=== PATIENT | male | born 1930 | race Caucasian/White ===

== ENCOUNTER 2018-01-31 16:50 | Inpatient (IN) | payer MEDICARE, BC ==
[~2018-01-31] VITALS: Ht 180.3 cm; Wt 71.0 kg
[2018-01-31] MEDS ORDERED: ondansetron/PF 4mg/2ml inj IM ONE (20:50)
[2018-01-31] MEDS ORDERED: normal saline 1000ML IV soln IVB ONE (20:50)
[2018-01-31] MEDS ORDERED: morphine 4 MG/ML inj SYRINge IV ONE (20:50)
[2018-01-31 21:46] LABS: BASOPHILS % (AUTO) 0 % (0-1); EOSINOPHILS % (AUTO) 0.1 % (0-6); HEMATOCRIT 27.1 % (42.0-52.0); HEMOGLOBIN 8.8 g/dl (14.0-17.9); LYMPHOCYTES # (AUTO) 0.5 X10'3 (1.1-4.8); LYMPHOCYTES % (AUTO) 4.2 % (21-51); MEAN CORPUSCULAR HEMOGLOBIN 26.1 PG (27.0-31.0); MEAN CORPUSCULAR HGB CONC 32.3 % (33.0-36.5); MEAN CORPUSCULAR VOLUME 80.7 FL (78-98); MEAN PLATELET VOLUME 8.5 FL (7.4-10.4); MONOCYTES # (AUTO) 0.8 X10'3 (0-0.9); MONOCYTES % (AUTO) 6.8 % (2-12); NEUTROPHILS # (AUTO) 10.3 X10'3 (1.8-7.7); NEUTROPHILS % (AUTO) 88.9 % (42-75); PLATELET COUNT 349 X10'3 (140-440); RED BLOOD COUNT 3.36 X10'6 (4.70-6.10); RED CELL DISTRIBUTION WIDTH 18.4 % (11.5-14.5); WHITE BLOOD COUNT 11.6 X10'3 (4.5-11.0)
[2018-01-31 21:57] LABS: CLARITY,URINE SLIGHTLY CLOUDY (Clear); COLOR,URINE YELLOW (Yellow); GLUCOSE, URINE NEGATIVE (Neg); KETONES,URINE NEGATIVE (Neg); LEUKOCYTE ESTERASE ,URINE NEGATIVE (Neg); NITRITES, URINE NEGATIVE (Neg); OCCULT BLOOD,URINE SMALL (Neg); PROTEIN,URINE 100 mg/dl (Neg)
[2018-01-31 22:05] LABS: UA COLLECTION TYPE CLN CATCH MIDSTREAM
[2018-01-31 22:06] LABS: PARTIAL THROMBOPLASTIN TIME 30 SECONDS (22-32); PROTHROMBIN TIME 10.5 SECONDS (9.0-12.0)
[2018-01-31 22:07] LABS: BACTERIA,URINE 4+ /HPF (Neg); SQUAMOUS EPITHELIAL CELL,UR NONE SEEN /LPF (FEW); WBC,URINE 0-4 /HPF (0-4)
[2018-01-31 22:09] LABS: ALANINE AMINOTRANSFERASE 17 U/L (12-78); ALBUMIN 2.9 G/DL (3.4-5.0); ALBUMIN/GLOBULIN RATIO 0.7 (1.1-1.5); ALKALINE PHOSPHATASE 59 IU/L (46-116); ANION GAP 11 (8-16); ASPARTATE AMINO TRANSFERASE 13 U/L (10-37); BILIRUBIN,TOTAL 0.6 MG/DL (0.1-1.0); BLOOD UREA NITROGEN 34 MG/DL (7-18); BUN/CREATININE RATIO 21.8 (5.4-32.0); CHLORIDE 102 MMOL/L (99-107); CREATININE 1.56 MG/DL (0.60-1.10); GLUCOSE 163 MG/DL (70-104); LIPASE 790 U/L (73-393); POTASSIUM 4.1 MMOL/L (3.5-5.1); SODIUM 136 MMOL/L (135-145); TOTAL CARBON DIOXIDE 23.4 MMOL/L (24-32); TOTAL PROTEIN 7.1 G/DL (6.4-8.2); eGFR 42 ML/MIN
[2018-02-01] MEDS ORDERED: CefTRIAXone/D5W-Rocephin 1gm 50 ML IV ONE (01:15)
[2018-02-01] MEDS ORDERED: ondansetron/PF 4mg/2ml inj IV PRN (02:05)
[2018-02-01] MEDS ORDERED: ACET325T63 (02:31)
[2018-02-01] MEDS ORDERED: ACET-1017 (02:31)
[2018-02-01] MEDS ORDERED: AMLO2.5T2 PO (02:33)
[2018-02-01] MEDS ORDERED: CALC300T4 PO (02:40)
[2018-02-01] MEDS ORDERED: ATRO10DR BU (02:40)
[2018-02-01] MEDS ORDERED: CARB1TAB23 PO (02:40)
[2018-02-01] MEDS ORDERED: AZAT50TA35 PO (02:40)
[2018-02-01] MEDS ORDERED: FERR325T28 PO (02:40)
[2018-02-01] MEDS ORDERED: ATOR40TA PO (02:40)
[2018-02-01] MEDS ORDERED: ASPI-1265 PO (02:40)
[2018-02-01] MEDS ORDERED: FLO0.4C PO (02:45)
[2018-02-01] MEDS ORDERED: GLIM1TAB46 PO (02:45)
[2018-02-01] MEDS ORDERED: LISI40TA4 PO (02:45)
[2018-02-01] MEDS ORDERED: PYRI60TA2 PO (02:45)
[2018-02-01] MEDS ORDERED: PRED5TAB PO (02:45)
[2018-02-01] MEDS ORDERED: ASCO500C15 PO (02:47)
[2018-02-01] MEDS: normal saline 1000ml 1,000 ML IV SCH ×3 (03:40→23:47)
[2018-02-01 07:00] VITALS: BP 138/71
[2018-02-01] MEDS: glimepiride 1 MG tablet PO SCH ×2 (07:30→17:24)
[2018-02-01] MEDS ORDERED: ATROPINE SULFATE BU SCH (08:00)
[2018-02-01] MEDS ORDERED: NACL 0.9% BU SCH (08:00)
[2018-02-01] MEDS ORDERED: CefTRIAXone/D5W-Rocephin 1gm 50 ML IV SCH (08:00)
[2018-02-01] MEDS: atorvastatin 20mg tablet PO SCH (08:50)
[2018-02-01] MEDS: lisinopril 20mg tablet PO SCH (08:50)
[2018-02-01] MEDS: calcium carbonate 500mg chew tablet PO SCH ×3 (08:51→20:21)
[2018-02-01] MEDS: ascorbic acid 500mg tablet PO SCH (08:51)
[2018-02-01] MEDS: amLODIPine 5mg tablet PO SCH (08:51)
[2018-02-01] MEDS: tamsulosin 0.4mg capsule PO SCH (08:52)
[2018-02-01] MEDS: predniSONE 20 mg tablet PO SCH (08:52)
[2018-02-01] MEDS: ferrous sulfate 325mg tablet PO SCH (08:52)
[2018-02-01] MEDS: pyridostigmine br 60mg tablet PO SCH ×3 (08:56→20:21)
[2018-02-01] MEDS: carbidoba-levodopa 25-100mg tablet PO SCH ×3 (08:58→20:21)
[2018-02-01 09:32] LABS: BASOPHILS % (AUTO) 0.1 % (0-1); LYMPHOCYTES # (AUTO) 0.7 X10'3 (1.1-4.8); WHITE BLOOD COUNT 8.6 X10'3 (4.5-11.0)
[2018-02-01 09:49] LABS: EOSINOPHILS # (AUTO) 0.2 X10'3 (0-0.9); EOSINOPHILS % (AUTO) 1.9 % (0-6); HEMATOCRIT 24.1 % (42.0-52.0); HEMOGLOBIN 7.8 g/dl (14.0-17.9); LYMPHOCYTES % (AUTO) 7.6 % (21-51); MEAN CORPUSCULAR HGB CONC 32.2 % (33.0-36.5); MEAN CORPUSCULAR VOLUME 80.9 FL (78-98); MEAN PLATELET VOLUME 8.8 FL (7.4-10.4); MONOCYTES # (AUTO) 0.7 X10'3 (0-0.9); MONOCYTES % (AUTO) 7.7 % (2-12); NEUTROPHILS # (AUTO) 7.1 X10'3 (1.8-7.7); NEUTROPHILS % (AUTO) 82.7 % (42-75); PLATELET COUNT 308 X10'3 (140-440); RED BLOOD COUNT 2.98 X10'6 (4.70-6.10); RED CELL DISTRIBUTION WIDTH 18.2 % (11.5-14.5)
[2018-02-01] MEDS: piperacillin/tazo 4.5gm/100ml 100 ML IV SCH ×3 (10:25→23:48)
[2018-02-01 12:00] VITALS: BP 145/63
[2018-02-01 18:22] VITALS: BP 111/40
[2018-02-01] MEDS: lactobacillus rhamnosus 10,000 MMU CELLS/CAPSULE PO SCH (20:21)
[2018-02-01 22:10] VITALS: BP 104/40
[2018-02-01 22:43] VITALS: BP 108/50
[2018-02-02] MEDS: calcium carbonate 500mg chew tablet PO SCH ×4 (02:00→20:50)
[2018-02-02 05:50] LABS: BASOPHILS % (AUTO) 0 % (0-1); EOSINOPHILS # (AUTO) 0.2 X10'3 (0-0.9); EOSINOPHILS % (AUTO) 1.6 % (0-6); LYMPHOCYTES # (AUTO) 0.7 X10'3 (1.1-4.8); LYMPHOCYTES % (AUTO) 7.2 % (21-51); MEAN CORPUSCULAR HGB CONC 32.8 % (33.0-36.5); MEAN CORPUSCULAR VOLUME 79.4 FL (78-98); MEAN PLATELET VOLUME 8.2 FL (7.4-10.4); MONOCYTES # (AUTO) 0.5 X10'3 (0-0.9); MONOCYTES % (AUTO) 5.5 % (2-12); NEUTROPHILS # (AUTO) 8.5 X10'3 (1.8-7.7); NEUTROPHILS % (AUTO) 85.7 % (42-75); PLATELET COUNT 288 X10'3 (140-440); RED BLOOD COUNT 2.59 X10'6 (4.70-6.10); RED CELL DISTRIBUTION WIDTH 18.4 % (11.5-14.5); WHITE BLOOD COUNT 9.9 X10'3 (4.5-11.0)
[2018-02-02 06:10] LABS: HEMATOCRIT 20.6 % (42.0-52.0); HEMOGLOBIN 6.8 g/dl (14.0-17.9)
[2018-02-02 06:34] LABS: ALBUMIN/GLOBULIN RATIO 0.6 (1.1-1.5); ALKALINE PHOSPHATASE 42 IU/L (46-116); ANION GAP 8 (8-16); ASPARTATE AMINO TRANSFERASE 13 U/L (10-37); BILIRUBIN,TOTAL 0.3 MG/DL (0.1-1.0); BLOOD UREA NITROGEN 34 MG/DL (7-18); BUN/CREATININE RATIO 20.2 (5.4-32.0); CALCIUM 8.1 MG/DL (8.5-10.1); CHLORIDE 108 MMOL/L (99-107); CREATININE 1.68 MG/DL (0.60-1.10); GLUCOSE 68 MG/DL (70-104); POTASSIUM 3.6 MMOL/L (3.5-5.1); SODIUM 140 MMOL/L (135-145); TOTAL CARBON DIOXIDE 23.7 MMOL/L (24-32); TOTAL PROTEIN 5.4 G/DL (6.4-8.2); eGFR 39 ML/MIN
[2018-02-02 06:38] LABS: ALANINE AMINOTRANSFERASE < 6 U/L (12-78)
[2018-02-02 06:44] VITALS: BP 119/62
[2018-02-02] MEDS: piperacillin/tazo 4.5gm/100ml 100 ML IV SCH (07:27)
[2018-02-02] MEDS: glimepiride 1 MG tablet PO SCH ×2 (07:27→20:50)
[2018-02-02] MEDS: pyridostigmine br 60mg tablet PO SCH ×3 (07:27→20:50)
[2018-02-02] MEDS: atorvastatin 20mg tablet PO SCH (07:27)
[2018-02-02] MEDS: ferrous sulfate 325mg tablet PO SCH (07:28)
[2018-02-02] MEDS: ascorbic acid 500mg tablet PO SCH (07:28)
[2018-02-02] MEDS: carbidoba-levodopa 25-100mg tablet PO SCH ×3 (07:29→20:50)
[2018-02-02] MEDS: tamsulosin 0.4mg capsule PO SCH (07:29)
[2018-02-02] MEDS: lactobacillus rhamnosus 10,000 MMU CELLS/CAPSULE PO SCH ×2 (07:29→20:50)
[2018-02-02] MEDS: predniSONE 20 mg tablet PO SCH (07:30)
[2018-02-02] MEDS: amLODIPine 5mg tablet PO SCH (07:30)
[2018-02-02] MEDS: lisinopril 20mg tablet PO SCH (07:30)
[2018-02-02 10:00] VITALS: BP 134/53
[2018-02-02] MEDS ORDERED: dextrose 50%-water 50ml dispensing syringe IV PRN ×2 (10:05)
[2018-02-02] MEDS ORDERED: diphenhydrAMINE 25mg capsule PO ONE (10:05)
[2018-02-02] MEDS ORDERED: MESSAGE TO PHARMACY PO ONE (10:05)
[2018-02-02] MEDS ORDERED: insulin Lispro (HumaLOG) vial - multi-dose SQ SCH (10:05)
[2018-02-02] MEDS ORDERED: glucagon, human recombinant 1mg kit SUBCUT PRN (10:05)
[2018-02-02] MEDS ORDERED: acetaminophen 325mg tablet PO ONE (10:05)
[2018-02-02] MEDS ORDERED: dextrose ORAL solution 15 GM/59 ML bottle PO PRN ×2 (10:05)
[2018-02-02 10:47] LABS: BASOPHILS % (AUTO) 0 % (0-1); EOSINOPHILS # (AUTO) 0.2 X10'3 (0-0.9); EOSINOPHILS % (AUTO) 1.3 % (0-6); HEMATOCRIT 23.2 % (42.0-52.0); HEMOGLOBIN 7.5 g/dl (14.0-17.9); LYMPHOCYTES # (AUTO) 0.2 X10'3 (1.1-4.8); LYMPHOCYTES % (AUTO) 1.2 % (21-51); MEAN CORPUSCULAR HEMOGLOBIN 25.9 PG (27.0-31.0); MEAN CORPUSCULAR HGB CONC 32.2 % (33.0-36.5); MEAN CORPUSCULAR VOLUME 80.5 FL (78-98); MEAN PLATELET VOLUME 8.2 FL (7.4-10.4); MONOCYTES # (AUTO) 0.4 X10'3 (0-0.9); MONOCYTES % (AUTO) 2.9 % (2-12); NEUTROPHILS # (AUTO) 12.8 X10'3 (1.8-7.7); NEUTROPHILS % (AUTO) 94.6 % (42-75); PLATELET COUNT 348 X10'3 (140-440); RED BLOOD COUNT 2.89 X10'6 (4.70-6.10); RED CELL DISTRIBUTION WIDTH 18.8 % (11.5-14.5); WHITE BLOOD COUNT 13.5 X10'3 (4.5-11.0)
[2018-02-02] MEDS: levoFLOXACIN-Levaquin 500mg/D5 100 ML IV SCH (10:49)
[2018-02-02 11:27] LABS: % IRON SATURATION 7 % (11-46); IRON 14 UG/DL (53-167); TOTAL IRON BINDING CAPACITY 187 UG/DL (259-388)
[2018-02-02] MEDS: Potassium Cl inj 10 MEQ in normal saline 1000ml 1,000 ML IV SCH (14:19)
[2018-02-02 18:20] VITALS: BP 116/50
[2018-02-02 22:15] VITALS: BP 118/49
[2018-02-03] VITALS (12 sets, daily range): BP systolic 105–156; BP diastolic 45–69
[2018-02-03] MEDS: Potassium Cl inj 10 MEQ in normal saline 1000ml 1,000 ML IV SCH ×3 (00:05→19:59)
[2018-02-03] MEDS ORDERED: Potassium Cl inj 10 MEQ in normal saline 1000ml 1,000 ML IV SCH (02:02)
[2018-02-03] MEDS: calcium carbonate 500mg chew tablet PO SCH ×4 (02:04→20:22)
[2018-02-03 06:33] LABS: BASOPHILS % (AUTO) 0.1 % (0-1); EOSINOPHILS # (AUTO) 0.3 X10'3 (0-0.9); EOSINOPHILS % (AUTO) 3.4 % (0-6); LYMPHOCYTES # (AUTO) 0.8 X10'3 (1.1-4.8); MEAN CORPUSCULAR HEMOGLOBIN 26.3 PG (27.0-31.0); MEAN CORPUSCULAR VOLUME 79.6 FL (78-98); MEAN PLATELET VOLUME 8.5 FL (7.4-10.4); MONOCYTES # (AUTO) 0.5 X10'3 (0-0.9); MONOCYTES % (AUTO) 5.6 % (2-12); NEUTROPHILS # (AUTO) 7.4 X10'3 (1.8-7.7); NEUTROPHILS % (AUTO) 81.9 % (42-75); PLATELET COUNT 281 X10'3 (140-440); RED BLOOD COUNT 2.41 X10'6 (4.70-6.10); RED CELL DISTRIBUTION WIDTH 18.3 % (11.5-14.5)
[2018-02-03 06:38] LABS: ALBUMIN 1.9 G/DL (3.4-5.0); ALBUMIN/GLOBULIN RATIO 0.6 (1.1-1.5); ALKALINE PHOSPHATASE 39 IU/L (46-116); ANION GAP 6 (8-16); ASPARTATE AMINO TRANSFERASE 13 U/L (10-37); BILIRUBIN,TOTAL 0.3 MG/DL (0.1-1.0); BLOOD UREA NITROGEN 28 MG/DL (7-18); BUN/CREATININE RATIO 17.8 (5.4-32.0); CHLORIDE 110 MMOL/L (99-107); CREATININE 1.57 MG/DL (0.60-1.10); GLUCOSE 58 MG/DL (70-104); HEMATOCRIT 19.2 % (42.0-52.0); HEMOGLOBIN 6.4 g/dl (14.0-17.9); POTASSIUM 3.6 MMOL/L (3.5-5.1); SODIUM 140 MMOL/L (135-145); TOTAL CARBON DIOXIDE 23.7 MMOL/L (24-32); TOTAL PROTEIN 5.1 G/DL (6.4-8.2); eGFR 42 ML/MIN
[2018-02-03 06:39] LABS: ALANINE AMINOTRANSFERASE < 6 U/L (12-78)
[2018-02-03] MEDS: carbidoba-levodopa 25-100mg tablet PO SCH ×3 (08:00→20:22)
[2018-02-03] MEDS: levoFLOXACIN-Levaquin 500mg/D5 100 ML IV SCH (09:11)
[2018-02-03] MEDS: ferrous sulfate 325mg tablet PO SCH (09:12)
[2018-02-03] MEDS: tamsulosin 0.4mg capsule PO SCH (09:12)
[2018-02-03] MEDS: lisinopril 20mg tablet PO SCH (09:12)
[2018-02-03] MEDS: glimepiride 1 MG tablet PO SCH ×2 (09:12→17:28)
[2018-02-03] MEDS: ascorbic acid 500mg tablet PO SCH (09:12)
[2018-02-03] MEDS: predniSONE 20 mg tablet PO SCH (09:12)
[2018-02-03] MEDS: lactobacillus rhamnosus 10,000 MMU CELLS/CAPSULE PO SCH ×2 (09:13→20:22)
[2018-02-03] MEDS: amLODIPine 5mg tablet PO SCH (09:13)
[2018-02-03] MEDS: pyridostigmine br 60mg tablet PO SCH ×3 (09:13→20:22)
[2018-02-03] MEDS: atorvastatin 20mg tablet PO SCH (09:13)
[2018-02-03 11:49] LABS: HEMATOCRIT 22.5 % (42.0-52.0); HEMOGLOBIN 7.3 g/dl (14.0-17.9); MEAN CORPUSCULAR HEMOGLOBIN 26.1 PG (27.0-31.0); MEAN CORPUSCULAR HGB CONC 32.5 % (33.0-36.5); MEAN CORPUSCULAR VOLUME 80.5 FL (78-98); MEAN PLATELET VOLUME 8.1 FL (7.4-10.4); PLATELET COUNT 298 X10'3 (140-440); RED BLOOD COUNT 2.79 X10'6 (4.70-6.10); WHITE BLOOD COUNT 10.1 X10'3 (4.5-11.0)
[2018-02-03 15:33] LABS: OCCULT BLOOD STOOL NEGATIVE (Neg)
[2018-02-03] MEDS ORDERED: glimepiride 1 MG tablet PO SCH ×2 (17:30→20:00)
[2018-02-03] MEDS: cefpodoxime proxetil 100mg tablet PO SCH (17:33)
[2018-02-03 18:01] LABS: HEMATOCRIT 28.2 % (42.0-52.0); HEMOGLOBIN 9.2 g/dl (14.0-17.9); MEAN CORPUSCULAR HEMOGLOBIN 26.5 PG (27.0-31.0); MEAN CORPUSCULAR HGB CONC 32.6 % (33.0-36.5); MEAN CORPUSCULAR VOLUME 81.2 FL (78-98); PLATELET COUNT 334 X10'3 (140-440); RED BLOOD COUNT 3.48 X10'6 (4.70-6.10); RED CELL DISTRIBUTION WIDTH 17.5 % (11.5-14.5); WHITE BLOOD COUNT 12.2 X10'3 (4.5-11.0)
[2018-02-04] MEDS: calcium carbonate 500mg chew tablet PO SCH ×4 (02:51→20:00)
[2018-02-04] MEDS: Potassium Cl inj 10 MEQ in normal saline 1000ml 1,000 ML IV SCH ×2 (02:53→14:38)
[2018-02-04 06:00] VITALS: BP 130/65
[2018-02-04 06:12] LABS: BASOPHILS % (AUTO) 0 % (0-1); EOSINOPHILS # (AUTO) 0.1 X10'3 (0-0.9); EOSINOPHILS % (AUTO) 0.9 % (0-6); HEMATOCRIT 25.7 % (42.0-52.0); HEMOGLOBIN 8.4 g/dl (14.0-17.9); LYMPHOCYTES # (AUTO) 0.7 X10'3 (1.1-4.8); LYMPHOCYTES % (AUTO) 8.3 % (21-51); MEAN CORPUSCULAR HEMOGLOBIN 26.6 PG (27.0-31.0); MEAN CORPUSCULAR HGB CONC 32.8 % (33.0-36.5); MEAN CORPUSCULAR VOLUME 81.2 FL (78-98); MEAN PLATELET VOLUME 8.5 FL (7.4-10.4); MONOCYTES # (AUTO) 0.4 X10'3 (0-0.9); MONOCYTES % (AUTO) 4.4 % (2-12); NEUTROPHILS # (AUTO) 7.7 X10'3 (1.8-7.7); NEUTROPHILS % (AUTO) 86.4 % (42-75); PLATELET COUNT 305 X10'3 (140-440); RED BLOOD COUNT 3.17 X10'6 (4.70-6.10); RED CELL DISTRIBUTION WIDTH 16.9 % (11.5-14.5); WHITE BLOOD COUNT 8.9 X10'3 (4.5-11.0)
[2018-02-04 07:07] LABS: ALBUMIN 1.9 G/DL (3.4-5.0); ALBUMIN/GLOBULIN RATIO 0.6 (1.1-1.5); ALKALINE PHOSPHATASE 48 IU/L (46-116); ANION GAP 10 (8-16); ASPARTATE AMINO TRANSFERASE 11 U/L (10-37); BILIRUBIN,TOTAL 0.6 MG/DL (0.1-1.0); BLOOD UREA NITROGEN 23 MG/DL (7-18); BUN/CREATININE RATIO 16.3 (5.4-32.0); CALCIUM 8.3 MG/DL (8.5-10.1); CHLORIDE 109 MMOL/L (99-107); CREATININE 1.41 MG/DL (0.60-1.10); GLUCOSE 111 MG/DL (70-104); POTASSIUM 4.1 MMOL/L (3.5-5.1); SODIUM 142 MMOL/L (135-145); TOTAL CARBON DIOXIDE 22.6 MMOL/L (24-32); TOTAL PROTEIN 5.3 G/DL (6.4-8.2); eGFR 48 ML/MIN
[2018-02-04 07:48] LABS: ALANINE AMINOTRANSFERASE < 6 U/L (12-78)
[2018-02-04] MEDS: glimepiride 1 MG tablet PO SCH (07:52)
[2018-02-04] MEDS: pyridostigmine br 60mg tablet PO SCH ×3 (07:52→21:30)
[2018-02-04] MEDS: carbidoba-levodopa 25-100mg tablet PO SCH ×3 (07:52→21:30)
[2018-02-04] MEDS: lactobacillus rhamnosus 10,000 MMU CELLS/CAPSULE PO SCH ×2 (07:53→20:00)
[2018-02-04] MEDS: amLODIPine 5mg tablet PO SCH (07:53)
[2018-02-04] MEDS: ascorbic acid 500mg tablet PO SCH (07:53)
[2018-02-04] MEDS: predniSONE 20 mg tablet PO SCH (07:53)
[2018-02-04] MEDS: ferrous sulfate 325mg tablet PO SCH (07:53)
[2018-02-04] MEDS: atorvastatin 20mg tablet PO SCH (07:53)
[2018-02-04] MEDS: lisinopril 20mg tablet PO SCH (07:53)
[2018-02-04] MEDS: tamsulosin 0.4mg capsule PO SCH (07:53)
[2018-02-04] MEDS: cefpodoxime proxetil 100mg tablet PO SCH ×2 (07:54→17:33)
[2018-02-04 09:27] LABS: BASOPHILS % (AUTO) 0.4 % (0-1); EOSINOPHILS # (AUTO) 0.3 X10'3 (0-0.9); HEMATOCRIT 29.9 % (42.0-52.0); HEMOGLOBIN 9.6 g/dl (14.0-17.9); LYMPHOCYTES # (AUTO) 0.8 X10'3 (1.1-4.8); LYMPHOCYTES % (AUTO) 8.3 % (21-51); MEAN CORPUSCULAR HEMOGLOBIN 26.1 PG (27.0-31.0); MEAN CORPUSCULAR HGB CONC 32.1 % (33.0-36.5); MEAN CORPUSCULAR VOLUME 81.2 FL (78-98); MEAN PLATELET VOLUME 8.2 FL (7.4-10.4); MONOCYTES # (AUTO) 0.4 X10'3 (0-0.9); MONOCYTES % (AUTO) 4.5 % (2-12); NEUTROPHILS # (AUTO) 7.6 X10'3 (1.8-7.7); NEUTROPHILS % (AUTO) 83.8 % (42-75); PLATELET COUNT 369 X10'3 (140-440); RED BLOOD COUNT 3.69 X10'6 (4.70-6.10); RED CELL DISTRIBUTION WIDTH 17.6 % (11.5-14.5); WHITE BLOOD COUNT 9.1 X10'3 (4.5-11.0)
[2018-02-04 10:35] VITALS: BP 152/59
[2018-02-04 19:00] VITALS: BP 141/71
[2018-02-04] MEDS ORDERED: glucagon, human recombinant 1mg kit SUBCUT PRN (21:45)
[2018-02-04] MEDS ORDERED: insulin Lispro (HumaLOG) vial - multi-dose SQ SCH (21:45)
[2018-02-04] MEDS ORDERED: dextrose 50%-water 50ml dispensing syringe IV PRN ×2 (21:45)
[2018-02-04] MEDS ORDERED: MESSAGE TO PHARMACY PO ONE (21:45)
[2018-02-04] MEDS ORDERED: dextrose ORAL solution 15 GM/59 ML bottle PO PRN ×2 (21:45)
[2018-02-04 22:00] VITALS: BP 132/54
[2018-02-05] MEDS: Potassium Cl inj 10 MEQ in normal saline 1000ml 1,000 ML IV SCH ×3 (01:11→22:14)
[2018-02-05] MEDS: calcium carbonate 500mg chew tablet PO SCH ×4 (03:51→20:12)
[2018-02-05 05:31] LABS: BASOPHILS % (AUTO) 0.4 % (0-1); EOSINOPHILS # (AUTO) 0.2 X10'3 (0-0.9); EOSINOPHILS % (AUTO) 2.6 % (0-6); HEMATOCRIT 26.7 % (42.0-52.0); HEMOGLOBIN 8.8 g/dl (14.0-17.9); LYMPHOCYTES # (AUTO) 0.9 X10'3 (1.1-4.8); LYMPHOCYTES % (AUTO) 11.7 % (21-51); MEAN CORPUSCULAR HEMOGLOBIN 26.6 PG (27.0-31.0); MEAN CORPUSCULAR VOLUME 80.6 FL (78-98); MONOCYTES # (AUTO) 0.5 X10'3 (0-0.9); MONOCYTES % (AUTO) 6.7 % (2-12); NEUTROPHILS # (AUTO) 6.4 X10'3 (1.8-7.7); NEUTROPHILS % (AUTO) 78.6 % (42-75); PLATELET COUNT 341 X10'3 (140-440); RED BLOOD COUNT 3.32 X10'6 (4.70-6.10); RED CELL DISTRIBUTION WIDTH 17.3 % (11.5-14.5); WHITE BLOOD COUNT 8.1 X10'3 (4.5-11.0)
[2018-02-05 05:51] LABS: ALANINE AMINOTRANSFERASE 6 U/L (12-78); ALBUMIN/GLOBULIN RATIO 0.6 (1.1-1.5); ALKALINE PHOSPHATASE 43 IU/L (46-116); ANION GAP 8 (8-16); ASPARTATE AMINO TRANSFERASE 14 U/L (10-37); BILIRUBIN,TOTAL 0.4 MG/DL (0.1-1.0); BLOOD UREA NITROGEN 22 MG/DL (7-18); BUN/CREATININE RATIO 19.1 (5.4-32.0); CALCIUM 8.3 MG/DL (8.5-10.1); CHLORIDE 112 MMOL/L (99-107); CREATININE 1.15 MG/DL (0.60-1.10); GLUCOSE 78 MG/DL (70-104); SODIUM 143 MMOL/L (135-145); TOTAL CARBON DIOXIDE 23.5 MMOL/L (24-32); TOTAL PROTEIN 5.3 G/DL (6.4-8.2); eGFR 60 ML/MIN
[2018-02-05 06:00] VITALS: BP 142/67
[2018-02-05] MEDS: cefpodoxime proxetil 100mg tablet PO SCH ×2 (08:18→17:25)
[2018-02-05] MEDS: lisinopril 20mg tablet PO SCH (08:21)
[2018-02-05] MEDS: amLODIPine 5mg tablet PO SCH (08:21)
[2018-02-05] MEDS: ferrous sulfate 325mg tablet PO SCH (08:22)
[2018-02-05] MEDS: predniSONE 20 mg tablet PO SCH (08:22)
[2018-02-05] MEDS: tamsulosin 0.4mg capsule PO SCH (08:22)
[2018-02-05] MEDS: atorvastatin 20mg tablet PO SCH (08:24)
[2018-02-05] MEDS: pyridostigmine br 60mg tablet PO SCH ×3 (08:24→20:12)
[2018-02-05] MEDS: glimepiride 1 MG tablet PO SCH ×2 (08:24→17:25)
[2018-02-05] MEDS: ascorbic acid 500mg tablet PO SCH (08:25)
[2018-02-05] MEDS: lactobacillus rhamnosus 10,000 MMU CELLS/CAPSULE PO SCH ×2 (08:26→20:12)
[2018-02-05] MEDS: carbidoba-levodopa 25-100mg tablet PO SCH ×3 (08:28→20:12)
[2018-02-05 10:00] VITALS: BP 149/56
[2018-02-05 18:00] VITALS: BP 108/40
[2018-02-05] MEDS ORDERED: insulin glargine (Lantus) pen - multi-dose SQ SCH (21:00)
[2018-02-05 22:00] VITALS: BP 126/58
[2018-02-06] MEDS: calcium carbonate 500mg chew tablet PO SCH ×3 (01:56→13:07)
[2018-02-06 06:00] VITALS: BP 128/53
[2018-02-06 06:30] LABS: BASOPHILS % (AUTO) 0.2 % (0-1); EOSINOPHILS # (AUTO) 0.2 X10'3 (0-0.9); EOSINOPHILS % (AUTO) 2.4 % (0-6); HEMATOCRIT 27.4 % (42.0-52.0); LYMPHOCYTES # (AUTO) 0.8 X10'3 (1.1-4.8); LYMPHOCYTES % (AUTO) 10.8 % (21-51); MEAN CORPUSCULAR HEMOGLOBIN 26.3 PG (27.0-31.0); MEAN CORPUSCULAR HGB CONC 32.8 % (33.0-36.5); MEAN CORPUSCULAR VOLUME 80.4 FL (78-98); MONOCYTES # (AUTO) 0.4 X10'3 (0-0.9); MONOCYTES % (AUTO) 5.1 % (2-12); NEUTROPHILS # (AUTO) 6.2 X10'3 (1.8-7.7); NEUTROPHILS % (AUTO) 81.5 % (42-75); PLATELET COUNT 373 X10'3 (140-440); RED CELL DISTRIBUTION WIDTH 17.8 % (11.5-14.5); WHITE BLOOD COUNT 7.6 X10'3 (4.5-11.0)
[2018-02-06 06:48] LABS: ALANINE AMINOTRANSFERASE 10 U/L (12-78); ALBUMIN 2.1 G/DL (3.4-5.0); ALBUMIN/GLOBULIN RATIO 0.6 (1.1-1.5); ALKALINE PHOSPHATASE 53 IU/L (46-116); ANION GAP 5 (8-16); ASPARTATE AMINO TRANSFERASE 13 U/L (10-37); BILIRUBIN,TOTAL 0.4 MG/DL (0.1-1.0); BLOOD UREA NITROGEN 21 MG/DL (7-18); BUN/CREATININE RATIO 16.5 (5.4-32.0); CALCIUM 8.6 MG/DL (8.5-10.1); CHLORIDE 112 MMOL/L (99-107); CREATININE 1.27 MG/DL (0.60-1.10); GLUCOSE 84 MG/DL (70-104); POTASSIUM 4.2 MMOL/L (3.5-5.1); SODIUM 144 MMOL/L (135-145); TOTAL CARBON DIOXIDE 26.6 MMOL/L (24-32); TOTAL PROTEIN 5.6 G/DL (6.4-8.2); eGFR 54 ML/MIN
[2018-02-06] MEDS: tamsulosin 0.4mg capsule PO SCH (08:23)
[2018-02-06] MEDS: ferrous sulfate 325mg tablet PO SCH (08:24)
[2018-02-06] MEDS: ascorbic acid 500mg tablet PO SCH (08:24)
[2018-02-06] MEDS: lactobacillus rhamnosus 10,000 MMU CELLS/CAPSULE PO SCH (08:24)
[2018-02-06] MEDS: lisinopril 20mg tablet PO SCH (08:24)
[2018-02-06] MEDS: glimepiride 1 MG tablet PO SCH (08:24)
[2018-02-06] MEDS: carbidoba-levodopa 25-100mg tablet PO SCH ×2 (08:24→13:07)
[2018-02-06] MEDS: predniSONE 20 mg tablet PO SCH (08:24)
[2018-02-06] MEDS: cefpodoxime proxetil 100mg tablet PO SCH (08:25)
[2018-02-06] MEDS: pyridostigmine br 60mg tablet PO SCH ×2 (08:25→13:07)
[2018-02-06] MEDS: amLODIPine 5mg tablet PO SCH (08:25)
[2018-02-06] MEDS: atorvastatin 20mg tablet PO SCH (08:25)
[2018-02-06] MEDS: Potassium Cl inj 10 MEQ in normal saline 1000ml 1,000 ML IV SCH (08:33)
[2018-02-06 12:54] VITALS: BP 139/64
== END 2018-02-06 16:00 | DRG 729 ==
LOC: ER 16:51 → ED HOLD 02-01 02:02 → ORTHO 4S 02-01 05:00
PROVIDERS: ADMIT Internal Medicine; ATTEND Family Medicine
PROC: 30233N1 Transfusion of Nonautologous Red Blood Cells into Peripheral Vein, Percutaneous Approach (ICD-10-PCS; principal; 2018-02-03)
DX: N43.3 Hydrocele, unspecified (principal); E44.0 Moderate protein-calorie malnutrition; E11.65 Type 2 diabetes mellitus with hyperglycemia; G23.1 Progressive supranuclear ophthalmoplegia [Steele-Richardson-Olszewski]; N30.80 Other cystitis without hematuria; G70.00 Myasthenia gravis without (acute) exacerbation; B96.20 Unspecified Escherichia coli [E. coli] as the cause of diseases classified elsewhere; E11.9 Type 2 diabetes mellitus without complications; D53.9 Nutritional anemia, unspecified; N28.9 Disorder of kidney and ureter, unspecified; D63.8 Anemia in other chronic diseases classified elsewhere; R91.1 Solitary pulmonary nodule; Z68.21 Body mass index [BMI] 21.0-21.9, adult; Z88.2 Allergy status to sulfonamides; Z85.46 Personal history of malignant neoplasm of prostate; Z87.891 Personal history of nicotine dependence; Z79.899 Other long term (current) drug therapy; Z79.01 Long term (current) use of anticoagulants; Z79.82 Long term (current) use of aspirin
CPT/HCPCS: 36415; 71045; 71250; 74176; 76870; 80053; 81001; 82272; 82607; 82746; 82948; 83036; 83540; 83550; 83605; 83690; 85025; 85027; 85610; 85730; 86885; 86900; 86901; 86920; 87040; 87070; 87077; 87088; 87186; 93005; 97110; 97116; 97162; 97530; 99285; A4315; A6209; A6212; A6446; A6449; J0696; J1815; J1956; J2405; J2543; J3480; J7030; J7500; J7512; P9016; Q0163

== ENCOUNTER 2018-07-19 10:15 | Emergency (ER) | payer MEDICARE, BC ==
[~2018-07-19] VITALS: Ht 180.3 cm; Wt 60.0 kg
[~2018-07-19 10:15] MED LIST: AMLO2.5T2 PO; ASCO500C15 PO; ASPI-1265 PO; ATOR40TA PO; ATRO10DR BU; AZAT50TA35 PO; CALC300T4 PO; CARB1TAB23 PO; FERR325T28 PO; FLO0.4C PO; GLIM1TAB46 PO; LISI40TA4 PO; PRED5TAB PO; PYRI60TA2 PO
[2018-07-19 10:24] VITALS: BP 105/52
== END 2018-07-19 11:32 | disposition home or self-care (01) ==
LOC: ER 10:15
DX: S51.812D Laceration without foreign body of left forearm, subsequent encounter (principal); E11.9 Type 2 diabetes mellitus without complications; W19.XXXD Unspecified fall, subsequent encounter; Z88.2 Allergy status to sulfonamides; Z79.82 Long term (current) use of aspirin; Z79.899 Other long term (current) drug therapy
CPT/HCPCS: 99284

== ENCOUNTER 2018-09-10 14:12 | Emergency (ER) | payer MEDICARE, BC ==
[~2018-09-10] VITALS: Ht 182.9 cm; Wt 71.4 kg
[2018-09-10 14:33] VITALS: BP 144/50
== END 2018-09-10 17:50 | disposition home or self-care (01) ==
LOC: ER 14:12
DX: S80.812A Abrasion, left lower leg, initial encounter (principal); S00.211A Abrasion of right eyelid and periocular area, initial encounter; R04.0 Epistaxis; E11.9 Type 2 diabetes mellitus without complications; Z98.890 Other specified postprocedural states; Z87.891 Personal history of nicotine dependence; Z88.2 Allergy status to sulfonamides; Z79.82 Long term (current) use of aspirin; Z79.899 Other long term (current) drug therapy; W01.0XXA Fall on same level from slipping, tripping and stumbling without subsequent striking against object, initial encounter; Y93.89 Activity, other specified; Y92.89 Other specified places as the place of occurrence of the external cause; Y99.8 Other external cause status
CPT/HCPCS: 99284

== ENCOUNTER 2018-11-19 17:57 | Inpatient (IN) | payer MEDICARE, BC | END 2018-11-22 13:30 | disposition home or self-care (01) | LOC: ORTHO 4S 23:16 → ER 17:57 | DX: J69.0 Pneumonitis due to inhalation of food and vomit (principal); G23.1 Progressive supranuclear ophthalmoplegia [Steele-Richardson-Olszewski]; J18.1 Lobar pneumonia, unspecified organism ==

== ENCOUNTER 2018-12-28 02:14 | Emergency (ER) | payer MEDICARE, BC ==
[~2018-12-28] VITALS: Ht 167.6 cm; Wt 74.0 kg
[~2018-12-28 02:14] MED LIST changes: +ALLO100T PO; +AMOX1TAB15 PO; -ASCO500C15 PO; -AZAT50TA35 PO; +CALC1TAB PO; -CALC300T4 PO; -CARB1TAB23 PO; +DOCU-20 PO; +NITR50CA4 PO; +PANT40TA4 PO; +TROS20TA4 PO
[2018-12-28 02:21] VITALS: BP 148/68
== END 2018-12-28 05:15 | disposition home or self-care (01) ==
LOC: ER 02:14
DX: S51.811A Laceration without foreign body of right forearm, initial encounter (principal); S81.811A Laceration without foreign body, right lower leg, initial encounter; W18.30XA Fall on same level, unspecified, initial encounter; Y92.89 Other specified places as the place of occurrence of the external cause; Y93.89 Activity, other specified; Y99.8 Other external cause status; Z91.81 History of falling; E11.9 Type 2 diabetes mellitus without complications; Z88.2 Allergy status to sulfonamides; Z79.82 Long term (current) use of aspirin; Z79.899 Other long term (current) drug therapy
CPT/HCPCS: 70450; 99284

== ENCOUNTER 2019-01-28 04:54 | Inpatient (IN) | payer MEDICARE, BC ==
[~2019-01-28] VITALS: Ht 182.9 cm; Wt 80.0 kg
[2019-01-28 05:25] LABS: BASOPHILS # (AUTO) 0.1 X10'3 (0-0.2); BASOPHILS % (AUTO) 0.7 % (0-1); EOSINOPHILS # (AUTO) 0.1 X10'3 (0-0.9); EOSINOPHILS % (AUTO) 0.4 % (0-6); HEMATOCRIT 29.3 % (42.0-52.0); HEMOGLOBIN 9.1 g/dl (14.0-17.9); LYMPHOCYTES # (AUTO) 1.2 X10'3 (1.1-4.8); LYMPHOCYTES % (AUTO) 8.9 % (21-51); MEAN CORPUSCULAR HEMOGLOBIN 26.9 PG (27.0-31.0); MEAN CORPUSCULAR HGB CONC 31.1 g/dL (33.0-36.5); MEAN CORPUSCULAR VOLUME 86.6 FL (78-98); MEAN PLATELET VOLUME 9.3 FL (7.4-10.4); MONOCYTES # (AUTO) 0.8 X10'3 (0-0.9); MONOCYTES % (AUTO) 5.8 % (2-12); NEUTROPHILS % (AUTO) 84.2 % (42-75); PLATELET COUNT 200 X10'3 (140-440); RED BLOOD COUNT 3.38 X10'6 (4.70-6.10); RED CELL DISTRIBUTION WIDTH 18.5 % (11.5-14.5)
[2019-01-28 05:41] LABS: PARTIAL THROMBOPLASTIN TIME 23 SECONDS (22-32)
[2019-01-28 05:46] LABS: ALANINE AMINOTRANSFERASE 21 U/L (12-78); ALBUMIN 2.8 G/DL (3.4-5.0); ALKALINE PHOSPHATASE 51 IU/L (46-116); ANION GAP 10 (8-16); ASPARTATE AMINO TRANSFERASE 13 U/L (10-37); BILIRUBIN,TOTAL 0.4 MG/DL (0.1-1.0); BLOOD UREA NITROGEN 32 MG/DL (7-18); BUN/CREATININE RATIO 18.1 (5.4-32.0); CALCIUM 7.9 MG/DL (8.5-10.1); CHLORIDE 109 MMOL/L (99-107); CREATININE 1.77 MG/DL (0.60-1.10); GLUCOSE 138 MG/DL (70-104); POTASSIUM 3.4 MMOL/L (3.5-5.1); SODIUM 143 MMOL/L (135-145); TOTAL CARBON DIOXIDE 23.9 MMOL/L (24-32); TOTAL PROTEIN 5.7 G/DL (6.4-8.2); eGFR 36 ML/MIN
[2019-01-28] MEDS ORDERED: heparin 25,000 UNIT/250ml bag 250 ML IV SCH (05:59)
[2019-01-28] MEDS ORDERED: heparin 10,000 units/1 ML INJ IV PRN (06:00)
[2019-01-28] MEDS ORDERED: heparin 10,000 units/1 ML INJ IV ONE (06:00)
--- NOTE | 2019-01-28 06:59 | NUR ---
PT. IS NO LONGER ON NONREBREATHER AND O2 SATS ARE 94% RA.
[2019-01-28 07:25] LABS: ANISOCYTOSIS 2+; PLATELET ESTIMATE NORMAL
[2019-01-28 07:26] LABS: POIKILOCYTOSIS FEW; POLYCHROMASIA 2+
[2019-01-28] MEDS ORDERED: HYDROcodone/acetaminophen 5mg/325mg tablet PO PRN (08:40)
[2019-01-28] MEDS ORDERED: mag hydrox/Alum hydrox/simeth 30ml oral suspension PO PRN (08:40)
[2019-01-28] MEDS ORDERED: magnesium hydroxide 30ml (MOM) UD suspension PO PRN (08:40)
[2019-01-28] MEDS ORDERED: morphine 2 MG/ML inj. syringe IV PRN ×2 (08:40)
[2019-01-28] MEDS ORDERED: acetaminophen 325mg tablet PO PRN (08:40)
[2019-01-28] MEDS ORDERED: ondansetron/PF 4mg/2ml inj IV PRN (08:40)
[2019-01-28] MEDS ORDERED: ALB0.5UD IH (08:41)
[2019-01-28] MEDS ORDERED: ACET500C5 PO (09:02)
[2019-01-28] MEDS: furosemide 20 MG/2 ML vial IV SCH ×2 (09:07→20:41)
--- NOTE | 2019-01-28 09:40 | NUR ---
Nevin terry in [facility] - 01/28/19 at 0941 by LETYS2 CALLED TO EDDA TURCIOS RN ON PHONE. SHE WILL CALL BE BACK.
--- NOTE | 2019-01-28 09:41 | NUR ---
CALLED TO GIVE REPORT. NURSE WAS ON PHONE AND WILL CALL ME BACK
[2019-01-28 09:52] LABS: CLARITY,URINE CLEAR (Clear); COLOR,URINE YELLOW (Yellow); GLUCOSE, URINE NEGATIVE (Neg); KETONES,URINE NEGATIVE (Neg); LEUKOCYTE ESTERASE ,URINE NEGATIVE (Neg); NITRITES, URINE NEGATIVE (Neg); OCCULT BLOOD,URINE SMALL (Neg); PROTEIN,URINE 100 mg/dl (Neg); UROBILINOGEN,URINE 0.2 E.U/dL (0.2-1.0)
[2019-01-28 09:53] LABS: UA COLLECTION TYPE URINAL
[2019-01-28 10:07] LABS: HYALINE CASTS 0-3 /LPF (NEGATIVE); SQUAMOUS EPITHELIAL CELL,UR FEW /LPF (FEW)
[2019-01-28 10:09] LABS: WBC,URINE 0-4 /HPF (0-4)
[2019-01-28 10:10] LABS: BACTERIA,URINE FEW /HPF (Neg)
[2019-01-28] MEDS ORDERED: tamsulosin 0.4mg capsule PO SCH (11:00)
[2019-01-28 11:14] VITALS: BP 105/76
--- NOTE | 2019-01-28 11:30 | NUR ---
Patient stable and in room 3026b. Vitals are stable, bed is low and locked, call light is within reach. Nonskid socks on bilateral feet. Will continue to monitor at this time.
[2019-01-28] MEDS: docusate sod 100mg capsule PO SCH ×2 (12:19→20:41)
[2019-01-28] MEDS: pyridostigmine br 60mg tablet PO SCH ×2 (12:20→20:41)
[2019-01-28] MEDS: predniSONE 20 mg tablet PO SCH (12:20)
[2019-01-28] MEDS: amLODIPine 2.5mg tablet PO SCH (12:23)
[2019-01-28] MEDS: aspirin 81mg tab.chew PO SCH (12:25)
[2019-01-28] MEDS: lisinopril 20mg tablet PO SCH (12:26)
[2019-01-28] MEDS ORDERED: magnesium 4gm in 100ml NS 100 ML IV PRN (13:55)
[2019-01-28] MEDS ORDERED: magnesium Cl slow-release 64mg tablet PO PRN (13:55)
[2019-01-28] MEDS ORDERED: magnesium 2GM in 50ml NS 50 ML IV PRN (13:55)
[2019-01-28] MEDS ORDERED: potassium Cl 20 mEq SR tablet PO PRN ×2 (13:55)
[2019-01-28] MEDS ORDERED: potassium Cl 40MEQ/NS 500ml 500 ML IV PRN ×2 (13:55)
[2019-01-28 17:41] LABS: HEMOGLOBIN A1C 7.8 % (4.5-6.2)
[2019-01-28 18:00] VITALS: BP 134/86
--- NOTE | 2019-01-28 18:37 | NUR ---
Problems reprioritized. Patient report given, questions answered & plan of care reviewed with Zena SÁNCHEZ. Patient stable at transfer of care.
--- NOTE | 2019-01-28 19:04 | NUR ---
Patient in room PCU 3026. I have received report from Becky SÁNCHEZ and had the opportunity to ask questions and assume patient care.
[2019-01-28] MEDS: tamsulosin 0.4mg capsule PO SCH (20:41)
[2019-01-28] MEDS: glimepiride 1 MG tablet PO SCH (20:41)
[2019-01-28] MEDS: calcium carbonate/vitamin D3 tablet PO SCH (20:41)
[2019-01-28 22:00] VITALS: BP 126/57
--- NOTE | 2019-01-28 22:13 | NUR ---
PLACED CONDOM CATHETER PER PATIENT REQUEST RC'D LASIX EARLIER AND WILL HELP HIM REMAIN CLEAN AND DRY. AT THIS TIME, PATIENT RESTING COMFORTABLY WITH EYES CLOSED. NO DISTRESS NOTED.
[2019-01-29 02:00] VITALS: BP 132/56
[2019-01-29 05:21] LABS: BASOPHILS % (AUTO) 0.1 % (0-1); EOSINOPHILS % (AUTO) 0.3 % (0-6); HEMATOCRIT 27.2 % (42.0-52.0); HEMOGLOBIN 8.7 g/dl (14.0-17.9); LYMPHOCYTES # (AUTO) 0.9 X10'3 (1.1-4.8); LYMPHOCYTES % (AUTO) 9.2 % (21-51); MEAN CORPUSCULAR HEMOGLOBIN 27.6 PG (27.0-31.0); MEAN CORPUSCULAR HGB CONC 32.1 g/dL (33.0-36.5); MEAN CORPUSCULAR VOLUME 86.1 FL (78-98); MEAN PLATELET VOLUME 9.4 FL (7.4-10.4); MONOCYTES # (AUTO) 0.7 X10'3 (0-0.9); MONOCYTES % (AUTO) 7.6 % (2-12); NEUTROPHILS % (AUTO) 82.8 % (42-75); PLATELET COUNT 189 X10'3 (140-440); RED BLOOD COUNT 3.16 X10'6 (4.70-6.10); RED CELL DISTRIBUTION WIDTH 17.6 % (11.5-14.5); WHITE BLOOD COUNT 9.6 X10'3 (4.5-11.0)
[2019-01-29 05:29] LABS: ALBUMIN 2.5 G/DL (3.4-5.0); ANION GAP 7 (8-16); BLOOD UREA NITROGEN 36 MG/DL (7-18); CALCIUM 8.3 MG/DL (8.5-10.1); CHLORIDE 107 MMOL/L (99-107); CHOLESTEROL 157 MG/DL (0-200); CREATININE 1.89 MG/DL (0.60-1.10); GLUCOSE 229 MG/DL (70-104); HDL CHOLESTEROL 77 MG/DL (35-60); LDL CHOLESTEROL 70 MG/DL (50-100); POTASSIUM 3.9 MMOL/L (3.5-5.1); SODIUM 141 MMOL/L (135-145); TRIGLYCERIDES 67 MG/DL (20-135); eGFR 34 ML/MIN
[2019-01-29 06:00] VITALS: BP 154/76
--- NOTE | 2019-01-29 06:23 | NUR ---
received report from marisa moraes
--- NOTE | 2019-01-29 06:34 | NUR ---
Problems reprioritized. Patient report given, questions answered & plan of care reviewed with GERMAIN SÁNCHEZ.
[2019-01-29] MEDS: furosemide 20 MG/2 ML vial IV SCH ×2 (08:20→20:54)
[2019-01-29] MEDS: glimepiride 1 MG tablet PO SCH ×2 (08:23→20:54)
[2019-01-29] MEDS: aspirin 81mg tab.chew PO SCH (08:24)
[2019-01-29] MEDS: ferrous sulfate 325mg tablet PO SCH (08:24)
[2019-01-29] MEDS: docusate sod 100mg capsule PO SCH ×3 (08:24→20:53)
[2019-01-29] MEDS: pyridostigmine br 60mg tablet PO SCH ×4 (08:25→20:54)
[2019-01-29] MEDS: atorvastatin 20mg tablet PO SCH (08:25)
[2019-01-29] MEDS: amLODIPine 2.5mg tablet PO SCH (08:26)
[2019-01-29] MEDS: calcium carbonate/vitamin D3 tablet PO SCH ×2 (08:27→20:53)
[2019-01-29] MEDS: allopurinol 100mg tablet PO SCH (08:28)
[2019-01-29] MEDS: lisinopril 20mg tablet PO SCH (08:28)
[2019-01-29] MEDS: predniSONE 20 mg tablet PO SCH (08:28)
[2019-01-29] MEDS: enoxaparin 40mg/0.4ml syringe SUBCUT SCH (08:35)
--- NOTE | 2019-01-29 08:50 | NUR ---
scanner not scanning meds into [facility], checked meds prior to admin
[2019-01-29] MEDS: nitrofurantoin macrocrystal 50mg capsule PO SCH (09:01)
--- NOTE | 2019-01-29 09:52 | NUR ---
resource nurse took pics and placed pics in chart
[2019-01-29 11:00] VITALS: BP 133/48
[2019-01-29] MEDS: albuterol 2.5 MG/3 ML nebule NEB SCH ×3 (11:00→20:07)
--- NOTE | 2019-01-29 12:42 | NUR ---
computer not scanning meds into [facility] at this time, checked meds prior to admin
--- NOTE | 2019-01-29 13:16 | NUR ---
DM Consult: A1C 7.8. Pt declined verbal DM ed during RD visit. Written ed w/ RD contact information left at bedside. Addendum: 01/29/19 at [address] Amended: Links added. Addendum: 01/29/19 at [address] DM Consult: A1C 7.8. Pt declined verbal DM ed during RD visit. Written ed w/ RD contact information left at bedside. Pt on NTL/heart healthy/carb controlled diet w/ no ASSOCIATE ACCOUNT DIRECTOR BSS order. RD ordered ASSOCIATE ACCOUNT DIRECTOR BSS for diet modification recs.
[2019-01-29 15:00] VITALS: BP 118/52
--- NOTE | 2019-01-29 15:30 | NUR ---
placed new condom cath on pt, currently intact, continue to monitor
--- NOTE | 2019-01-29 16:52 | NUR ---
scanner not working to scan med into [facility], checked med prior to admin
[2019-01-29 18:00] VITALS: BP 92/55
--- NOTE | 2019-01-29 18:17 | NUR ---
gave report to marisa trinidad
--- NOTE | 2019-01-29 19:05 | NUR ---
Report rec'd from marisa Nunez.
[2019-01-29] MEDS: tamsulosin 0.4mg capsule PO SCH (20:54)
[2019-01-29 21:02] VITALS: BP 126/54
[2019-01-30 02:00] VITALS: BP 114/76
[2019-01-30 05:28] LABS: BASOPHILS % (AUTO) 0.3 % (0-1); EOSINOPHILS # (AUTO) 0.1 X10'3 (0-0.9); HEMATOCRIT 28.2 % (42.0-52.0); HEMOGLOBIN 9.2 g/dl (14.0-17.9); LYMPHOCYTES # (AUTO) 1.1 X10'3 (1.1-4.8); LYMPHOCYTES % (AUTO) 13.6 % (21-51); MEAN CORPUSCULAR HEMOGLOBIN 27.9 PG (27.0-31.0); MEAN CORPUSCULAR HGB CONC 32.6 g/dL (33.0-36.5); MEAN CORPUSCULAR VOLUME 85.6 FL (78-98); MEAN PLATELET VOLUME 9.2 FL (7.4-10.4); MONOCYTES # (AUTO) 0.6 X10'3 (0-0.9); MONOCYTES % (AUTO) 7.5 % (2-12); NEUTROPHILS # (AUTO) 6.1 X10'3 (1.8-7.7); NEUTROPHILS % (AUTO) 77.6 % (42-75); PLATELET COUNT 185 X10'3 (140-440); RED BLOOD COUNT 3.29 X10'6 (4.70-6.10); WHITE BLOOD COUNT 7.8 X10'3 (4.5-11.0)
[2019-01-30 05:37] LABS: ALBUMIN 2.4 G/DL (3.4-5.0); ANION GAP 5 (8-16); BLOOD UREA NITROGEN 34 MG/DL (7-18); BUN/CREATININE RATIO 20.1 (5.4-32.0); CALCIUM 8.6 MG/DL (8.5-10.1); CHLORIDE 107 MMOL/L (99-107); CREATININE 1.69 MG/DL (0.60-1.10); GLUCOSE 140 MG/DL (70-104); MAGNESIUM 1.8 MG/DL (1.5-2.4); POTASSIUM 3.5 MMOL/L (3.5-5.1); SODIUM 143 MMOL/L (135-145); TOTAL CARBON DIOXIDE 31.2 MMOL/L (24-32); eGFR 38 ML/MIN
[2019-01-30] MEDS: albuterol 2.5 MG/3 ML nebule NEB SCH (06:00)
--- NOTE | 2019-01-30 06:42 | NUR ---
REPORT GIVEN TO GONZALO HER.
--- NOTE | 2019-01-30 06:46 | NUR ---
Patient in room PCU 3026. I have received report from Yisel SNÁCHEZ and had the opportunity to ask questions and assume patient care.
[2019-01-30 07:00] VITALS: BP 124/65
[2019-01-30] MEDS: nitrofurantoin macrocrystal 50mg capsule PO SCH (07:59)
[2019-01-30] MEDS: atorvastatin 20mg tablet PO SCH (08:00)
[2019-01-30] MEDS: allopurinol 100mg tablet PO SCH (08:00)
[2019-01-30] MEDS: glimepiride 1 MG tablet PO SCH ×2 (08:00→08:19)
[2019-01-30] MEDS: aspirin 81mg tab.chew PO SCH (08:02)
[2019-01-30] MEDS: pyridostigmine br 60mg tablet PO SCH (08:03)
[2019-01-30 08:04] VITALS: BP_SYST 125
[2019-01-30] MEDS: lisinopril 20mg tablet PO SCH (08:04)
[2019-01-30] MEDS: predniSONE 20 mg tablet PO SCH (08:04)
[2019-01-30] MEDS: docusate sod 100mg capsule PO SCH (08:04)
[2019-01-30] MEDS: ferrous sulfate 325mg tablet PO SCH (08:04)
[2019-01-30] MEDS: calcium carbonate/vitamin D3 tablet PO SCH (08:04)
[2019-01-30] MEDS: furosemide 20 MG/2 ML vial IV SCH (08:05)
[2019-01-30] MEDS: enoxaparin 40mg/0.4ml syringe SUBCUT SCH (08:05)
[2019-01-30] MEDS: amLODIPine 2.5mg tablet PO SCH (08:19)
[2019-01-30] MEDS ORDERED: FURO-150 PO (08:53)
[2019-01-30] MEDS ORDERED: CARV3.12 PO (08:53)
[2019-01-30] MEDS ORDERED: albuterol 2.5 MG/3 ML nebule NEB SCH (09:00)
--- NOTE | 2019-01-30 10:35 | NUR ---
Discharged patient without event via W/C per [facility]. Eager to go home. Verbalized understanding with discharge instructions. IV and tele dc'd with cathlon intact. Discharge pictures taken. Called new meds into [facility]. Son transporting patient home. Belongings sent home with patient.
== END 2019-01-30 10:35 | disposition home health service (06) | DRG 280 ==
LOC: ER 04:55 → PCU 3S 09:59
PROVIDERS: ADMIT Internal Medicine; ATTEND Internal Medicine
DX: I13.0 Hypertensive heart and chronic kidney disease with heart failure and stage 1 through stage 4 chronic kidney disease, or unspecified chronic kidney disease (principal); I50.23 Acute on chronic systolic (congestive) heart failure; I21.A1 Myocardial infarction type 2; N17.9 Acute kidney failure, unspecified; G23.1 Progressive supranuclear ophthalmoplegia [Steele-Richardson-Olszewski]; N18.3 Chronic kidney disease, stage 3 (moderate); D63.8 Anemia in other chronic diseases classified elsewhere; E11.22 Type 2 diabetes mellitus with diabetic chronic kidney disease; E78.5 Hyperlipidemia, unspecified; G70.00 Myasthenia gravis without (acute) exacerbation; I48.0 Paroxysmal atrial fibrillation; I35.0 Nonrheumatic aortic (valve) stenosis; J45.909 Unspecified asthma, uncomplicated; N40.0 Benign prostatic hyperplasia without lower urinary tract symptoms; Z66 Do not resuscitate; Z87.891 Personal history of nicotine dependence; Z88.2 Allergy status to sulfonamides; Z79.82 Long term (current) use of aspirin
CPT/HCPCS: 36415; 71045; 80048; 80053; 80061; 81001; 83036; 83735; 83880; 84484; 85025; 85610; 85730; 87070; 92508; 92616; 93005; 93308; 94640; 94760; 96365; 96376; 97116; 97162; 97530; 99285; G0378; J1644; J1650; J1940; J7512

== ENCOUNTER 2019-04-24 08:06 | Inpatient (IN) | payer MEDICARE, BC ==
[~2019-04-24] VITALS: Ht 167.6 cm; Wt 76.4 kg
[~2019-04-24 08:06] MED LIST changes: +ACET500C5 PO; +ALB0.5UD IH; -AMLO2.5T2 PO; -AMOX1TAB15 PO; -ATRO10DR BU; +CARV3.12 PO; +FURO-150 PO; +GLIM1TAB3 PO; -GLIM1TAB46 PO; -NITR50CA4 PO; -PANT40TA4 PO; -TROS20TA4 PO
[2019-04-24] MEDS ORDERED: acetaminophen 325mg tablet PO STA (08:27)
[2019-04-24] MEDS ORDERED: vancomycin/NS 1 GM ADD-VANTAGE 250 ML IV ONE (08:30)
[2019-04-24] MEDS ORDERED: normal saline 1000ML IV soln IV ONE (08:30)
[2019-04-24 09:24] LABS: BASOPHILS % (AUTO) 0.1 % (0-1); EOSINOPHILS % (AUTO) 0.2 % (0-6); HEMOGLOBIN 11.2 g/dl (14.0-17.9); LYMPHOCYTES # (AUTO) 1.1 X10'3 (1.1-4.8); LYMPHOCYTES % (AUTO) 6.3 % (21-51); MEAN CORPUSCULAR HEMOGLOBIN 27.1 PG (27.0-31.0); MEAN CORPUSCULAR HGB CONC 31.9 g/dL (33.0-36.5); MEAN CORPUSCULAR VOLUME 84.9 FL (78-98); MEAN PLATELET VOLUME 9.3 FL (7.4-10.4); MONOCYTES % (AUTO) 5.9 % (2-12); NEUTROPHILS # (AUTO) 14.6 X10'3 (1.8-7.7); NEUTROPHILS % (AUTO) 87.5 % (42-75); PLATELET COUNT 153 X10'3 (140-440); RED BLOOD COUNT 4.12 X10'6 (4.70-6.10); RED CELL DISTRIBUTION WIDTH 19.2 % (11.5-14.5); WHITE BLOOD COUNT 16.7 X10'3 (4.5-11.0)
[2019-04-24 09:29] LABS: PARTIAL THROMBOPLASTIN TIME 24 SECONDS (22-32)
[2019-04-24 09:35] LABS: ALANINE AMINOTRANSFERASE 24 U/L (12-78); ALBUMIN 2.5 G/DL (3.4-5.0); ALBUMIN/GLOBULIN RATIO 0.8 (1.1-1.5); ALKALINE PHOSPHATASE 55 IU/L (46-116); ANION GAP 8 (8-16); ASPARTATE AMINO TRANSFERASE 15 U/L (10-37); BILIRUBIN,TOTAL 0.6 MG/DL (0.1-1.0); BLOOD UREA NITROGEN 37 MG/DL (7-18); BUN/CREATININE RATIO 19.2 (5.4-32.0); CALCIUM 8.1 MG/DL (8.5-10.1); CHLORIDE 109 MMOL/L (99-107); CREATININE 1.93 MG/DL (0.60-1.10); GLUCOSE 150 MG/DL (70-104); MAGNESIUM 1.9 MG/DL (1.5-2.4); SODIUM 145 MMOL/L (135-145); TOTAL CARBON DIOXIDE 28.3 MMOL/L (24-32); TOTAL PROTEIN 5.7 G/DL (6.4-8.2); eGFR 33 ML/MIN
[2019-04-24] MEDS ORDERED: aspirin 325mg tablet PO ONE (09:35)
[2019-04-24] MEDS ORDERED: diltiazem 5mg/ml 5ml inj. IV ONE (09:35)
[2019-04-24] MEDS ORDERED: enoxaparin 80mg/0.8ml syringe SUBCUT ONE (09:40)
[2019-04-24] MEDS ORDERED: enoxaparin 100mg/ml syringe SUBCUT ONE (09:40)
[2019-04-24] MEDS ORDERED: potassium Cl 10 mEq/100mL bag IV ONE (09:45)
[2019-04-24] MEDS ORDERED: potassium Cl 20 mEq SR tablet PO STA (09:45)
[2019-04-24] MEDS ORDERED: dextrose ORAL solution 15 GM/59 ML bottle PO PRN ×2 (10:10)
[2019-04-24] MEDS ORDERED: dextrose 50%-water 50ml dispensing syringe IV PRN (10:10)
[2019-04-24] MEDS ORDERED: ondansetron/PF 4mg/2ml inj IV PRN (10:10)
[2019-04-24] MEDS ORDERED: magnesium 4gm in 100ml NS 100 ML IV PRN (10:10)
[2019-04-24] MEDS ORDERED: acetaminophen 325mg tablet PO PRN (10:10)
[2019-04-24] MEDS ORDERED: potassium CL 10mEq/100ml bag 100 ML IV PRN ×2 (10:10)
[2019-04-24] MEDS ORDERED: mag hydrox/Alum hydrox/simeth 30ml oral suspension PO PRN (10:10)
[2019-04-24] MEDS ORDERED: magnesium 2GM in 50ml NS 50 ML IV PRN (10:10)
[2019-04-24] MEDS ORDERED: MESSAGE TO PHARMACY PO ONE (10:10)
[2019-04-24] MEDS ORDERED: potassium Cl 20 mEq SR tablet PO PRN (10:10)
[2019-04-24] MEDS ORDERED: docusate sod 100mg capsule PO PRN (10:10)
[2019-04-24] MEDS ORDERED: glucagon, human recombinant 1mg kit SUBCUT PRN (10:10)
[2019-04-24 10:42] LABS: HEMOGLOBIN A1C 8.6 % (4.5-6.2)
[2019-04-24] MEDS ORDERED: diltiazem-NS 100mg/100ml 125 ML IV SCH ×2 (10:45→17:11)
[2019-04-24 10:52] LABS: TOTAL CELLS COUNTED 100
[2019-04-24 10:57] LABS: ANISOCYTOSIS 2+; PLATELET ESTIMATE NORMAL; TOXIC GRANULATION 1+
[2019-04-24 12:30] VITALS: BP 121/43
[2019-04-24] MEDS ORDERED: NITR50CA PO (13:30)
[2019-04-24] MEDS ORDERED: AMLO10TA13 PO (13:30)
[2019-04-24] MEDS ORDERED: PANT40TA4 PO (13:30)
[2019-04-24] MEDS ORDERED: TROS20TA4 PO (13:48)
[2019-04-24] MEDS ORDERED: PRED10TA PO (13:48)
[2019-04-24] MEDS ORDERED: GLIM4TAB4 PO (13:48)
[2019-04-24] MEDS ORDERED: FURO-150 PO (13:48)
[2019-04-24] MEDS ORDERED: FERR325T28 PO (13:48)
[2019-04-24] MEDS ORDERED: PYRI60TA PO (13:48)
[2019-04-24] MEDS ORDERED: non-formulary drug (Acetaminophen (Mapap) 1 CAP) PO PRN (14:15)
[2019-04-24] MEDS: acetaminophen 325mg tablet PO PRN (14:44)
[2019-04-24] MEDS: potassium Cl 20 mEq SR tablet PO PRN ×2 (14:54→20:32)
[2019-04-24 15:00] VITALS: BP 131/58
[2019-04-24] MEDS: ipratropium/albuterol 3ml nebule NEB SCH ×2 (15:48→21:42)
[2019-04-24] MEDS: cefepime 1GM in D5W 50mL 50 ML IV SCH (16:25)
--- NOTE | 2019-04-24 17:06 | NUR ---
PAGER ID: [phone] MESSAGE: [phone]. Pt's HR still hanging out in the 120s to 140s. Would you like to turn the Cardizem up to 10? Pt. does not have any complaints Gavin SÁNCHEZ [phone]
[2019-04-24 17:30] VITALS: BP 130/58
[2019-04-24] MEDS: pyridostigmine br 60mg tablet PO SCH ×2 (17:36→20:36)
[2019-04-24] MEDS: ferrous sulfate 325mg tablet PO SCH ×2 (17:36→20:30)
[2019-04-24 18:00] VITALS: BP 129/49
--- NOTE | 2019-04-24 18:32 | NUR ---
Problems reprioritized. Patient report given, questions answered & plan of care reviewed with Dorita SÁNCHEZ.
--- NOTE | 2019-04-24 18:37 | NUR ---
Patient in room PCU 3017. I have received report from Gavin SÁNCHEZ and had the opportunity to ask questions and assume patient care.
[2019-04-24 20:00] VITALS: BP 106/63
[2019-04-24] MEDS ORDERED: TROSPIUM CHLORIDE PO SCH (20:00)
[2019-04-24] MEDS ORDERED: VITAMIN D3 PO SCH (20:00)
[2019-04-24] MEDS ORDERED: CALCIUM CARBONATE PO SCH (20:00)
[2019-04-24] MEDS ORDERED: VIT D PO SCH (20:00)
[2019-04-24] MEDS: enoxaparin 80mg/0.8ml syringe SUBCUT SCH (20:00)
[2019-04-24] MEDS ORDERED: methylPREDNISolone sod succ 125mg/2ml vial IV ONE (20:20)
[2019-04-24] MEDS: carVEDilol 3.125mg tablet PO SCH (20:28)
[2019-04-24] MEDS: calcium carbonate/vitamin D3 tablet PO SCH (20:29)
[2019-04-24] MEDS: docusate sod 100mg capsule PO SCH (20:30)
[2019-04-24] MEDS: oxybutynin 5mg tablet PO SCH (20:33)
[2019-04-24] MEDS: furosemide 20MG tablet PO SCH (20:38)
[2019-04-24] MEDS: insulin glargine (Lantus) pen - multi-dose SQ SCH (21:00)
--- NOTE | 2019-04-24 21:08 | NUR ---
critical trop value 0.74
[2019-04-24 22:00] VITALS: BP 138/52
--- NOTE | 2019-04-24 22:22 | NUR ---
pt have fever 102.1 axialrry but temp oral is 98.3 , Dr. Ruiz awared
[2019-04-24] MEDS ORDERED: diltiazem-NS 100mg/100ml 100 ML IV SCH (23:57)
[2019-04-25] VITALS (9 sets, daily range): BP systolic 92–126; BP diastolic 34–96
[2019-04-25] MEDS: ipratropium/albuterol 3ml nebule NEB SCH ×4 (03:29→20:45)
--- NOTE | 2019-04-25 05:44 | NUR ---
called Dr. Ruiz about cardizem ggt with BP systlic on 100s, Hr 80s, rate change form 8mg to 5mg
[2019-04-25 06:23] LABS: BASOPHILS % (AUTO) 0.1 % (0-1); EOSINOPHILS % (AUTO) 0 % (0-6); HEMATOCRIT 29.5 % (42.0-52.0); HEMOGLOBIN 9.4 g/dl (14.0-17.9); LYMPHOCYTES # (AUTO) 0.4 X10'3 (1.1-4.8); LYMPHOCYTES % (AUTO) 2.2 % (21-51); MEAN CORPUSCULAR HEMOGLOBIN 27.4 PG (27.0-31.0); MEAN CORPUSCULAR HGB CONC 31.8 g/dL (33.0-36.5); MEAN CORPUSCULAR VOLUME 86.3 FL (78-98); MEAN PLATELET VOLUME 9.5 FL (7.4-10.4); MONOCYTES # (AUTO) 0.5 X10'3 (0-0.9); MONOCYTES % (AUTO) 2.7 % (2-12); NEUTROPHILS # (AUTO) 17.4 X10'3 (1.8-7.7); PLATELET COUNT 135 X10'3 (140-440); RED BLOOD COUNT 3.43 X10'6 (4.70-6.10); RED CELL DISTRIBUTION WIDTH 19.5 % (11.5-14.5); WHITE BLOOD COUNT 18.3 X10'3 (4.5-11.0)
--- NOTE | 2019-04-25 06:28 | NUR ---
Problems reprioritized. Patient report given, questions answered & plan of care reviewed with Latia RN.
--- NOTE | 2019-04-25 06:29 | NUR ---
Patient in room PCU 3017. I have received report from GONZALO Kevin and had the opportunity to ask questions and assume patient care. Pt is sleeping. Sons at bedside. Will continue to monitor.
--- NOTE | 2019-04-25 06:29 | NUR ---
Patient in room PCU 3017. I have received report from Dorita SÁNCHEZ and had the opportunity to ask questions and assume patient care. Pt is in bed sleeping with family at bedside
[2019-04-25 06:42] LABS: ALANINE AMINOTRANSFERASE 19 U/L (12-78); ALBUMIN/GLOBULIN RATIO 0.6 (1.1-1.5); ALKALINE PHOSPHATASE 38 IU/L (46-116); ANION GAP 8 (8-16); ASPARTATE AMINO TRANSFERASE 26 U/L (10-37); BILIRUBIN,TOTAL 0.6 MG/DL (0.1-1.0); BLOOD UREA NITROGEN 50 MG/DL (7-18); BUN/CREATININE RATIO 17.1 (5.4-32.0); CALCIUM 7.7 MG/DL (8.5-10.1); CHLORIDE 108 MMOL/L (99-107); CHOL/HDL RATIO 1.6 (0.00-4.99); CHOLESTEROL 113 MG/DL (0-200); CREATININE 2.93 MG/DL (0.60-1.10); GLUCOSE 263 MG/DL (70-104); HDL CHOLESTEROL 72 MG/DL (35-60); LDL CHOLESTEROL 26 MG/DL (50-100); MAGNESIUM 1.8 MG/DL (1.5-2.4); SODIUM 139 MMOL/L (135-145); TOTAL CARBON DIOXIDE 22.9 MMOL/L (24-32); TOTAL PROTEIN 5.1 G/DL (6.4-8.2); TRIGLYCERIDES 76 MG/DL (20-135); eGFR 20 ML/MIN
--- NOTE | 2019-04-25 06:45 | NUR ---
Order for 8mL/hr for cardizem drip, was running at 5mL/hr at beginning of shift. HR 80 at 0600. Last BP that was caught by mobile monitor was 92/[address] Hester aware. Will continue to monitor, and await orders.
[2019-04-25 06:55] LABS: POTASSIUM 6.4 MMOL/L (3.5-5.1)
--- NOTE | 2019-04-25 07:13 | NUR ---
PAGER ID: [phone] MESSAGE: [phone] Scottie Soria: ONI Croft is 6.4, also have questions about the karmen drip. Thank You. David [phone]
[2019-04-25] MEDS ORDERED: non-formulary drug (Lisinopril* 1 TAB) PO SCH (08:00)
[2019-04-25] MEDS ORDERED: non-formulary drug (Atorvastatin Calcium* (Lipitor*) 1 TAB) PO SCH (08:00)
[2019-04-25] MEDS: K and/or MAG REPLACEMENT MC SCH (08:00)
[2019-04-25] MEDS: enoxaparin 80mg/0.8ml syringe SUBCUT SCH (08:00)
[2019-04-25] MEDS ORDERED: lisinopril 20mg tablet PO SCH (08:00)
[2019-04-25] MEDS: cefepime 1GM in D5W 50mL 50 ML IV SCH ×3 (08:17→16:11)
[2019-04-25] MEDS: pyridostigmine br 60mg tablet PO SCH ×4 (08:17→21:04)
[2019-04-25] MEDS: nitrofurantoin macrocrystal 50mg capsule PO SCH (08:17)
[2019-04-25] MEDS: ferrous sulfate 325mg tablet PO SCH ×4 (08:18→21:00)
[2019-04-25] MEDS: oxybutynin 5mg tablet PO SCH ×3 (08:18→21:00)
[2019-04-25] MEDS: carVEDilol 3.125mg tablet PO SCH (08:18)
[2019-04-25] MEDS: calcium carbonate/vitamin D3 tablet PO SCH ×2 (08:19→19:42)
[2019-04-25] MEDS: allopurinol 300 MG tablet PO SCH (08:19)
[2019-04-25] MEDS: furosemide 20MG tablet PO SCH ×2 (08:19→19:42)
[2019-04-25] MEDS: atorvastatin 20mg tablet PO SCH (08:19)
[2019-04-25] MEDS: docusate sod 100mg capsule PO SCH ×3 (08:20→21:00)
[2019-04-25] MEDS: aspirin 81mg tab.chew PO SCH (08:20)
[2019-04-25] MEDS: pantoprazole 40mg Tablet.DR PO SCH (08:20)
[2019-04-25] MEDS: tamsulosin 0.4mg capsule PO SCH (08:20)
[2019-04-25] MEDS: prednisone 10mg tablet PO SCH (08:21)
--- NOTE | 2019-04-25 08:45 | NUR ---
PAGER ID: [phone] MESSAGE: [id number] Scottie Soria: ONI Croft redraw is 6.5. Please advise. Thanks David [phone]
[2019-04-25] MEDS: insulin Lispro (HumaLOG) vial - multi-dose SQ SCH ×2 (08:51→13:29)
[2019-04-25] MEDS ORDERED: dextrose 50%-water 50ml dispensing syringe IV ONE (09:30)
[2019-04-25] MEDS ORDERED: insulin regular, human 10 units/0.1 ml syringe IV ONE (09:30)
[2019-04-25] MEDS ORDERED: calcium chloride inj. 1,000 MG in normal saline 100ml IV soln 90 ML IV ONE (09:30)
[2019-04-25] MEDS ORDERED: vancomycin/NS 1 GM ADD-VANTAGE 250 ML IV PRN (11:55)
--- NOTE | 2019-04-25 12:05 | NUR ---
DM consult: Pt with A1c 8.6 admit with sepsis secondary to RUE cellulitis. Pt documented as confused, education not appropriate at this time. Pt previously admitted and provided with written DM ed with referral to outpatient DM class and RD contact information 01/29/19. Pt currently on pureed heart healthy CHO controlled diet with nectar thick liquids and documented with 100% PO intake at breakfast this morning meeting nutrient needs. Pt has not has a BSS this visit however noted he was previously seen by ST 01/30/19 with recs for regular food and nectar thick liquids d/t coughing with thin liquids. Will consult for BSS this visit. LB 04/25. Will continue to follow. Recommendations: 1) Continue with heart healthy CHO controlled diet with texture modification per recs pending BSS 2) Monitor need for ONS 3) Routine bowel care 4) Wt per rx Addendum: 04/25/19 at [address] Amended: Links added.
--- NOTE | 2019-04-25 12:35 | NUR ---
Insulin Regular 10 units administered Subq, orders state to give IV, pt shows no s/s of hypoglycemia, BG was 277 @ 1200, 269 @0700. Dr. Hester notified 5130, he recommends monitor BS and potassium lvls, no new orders given, Charge nurse informed. Pt in bed sleeping, will continue to monitor.
--- NOTE | 2019-04-25 13:12 | NUR ---
Sent to Dr Hester PAGER ID: [phone] MESSAGE: RE: Scottie Soria [id number]. Did you decide what to do about the cardizem drip? -Latia [phone]
--- NOTE | 2019-04-25 14:27 | NUR ---
PAGER ID: [phone] MESSAGE: RE: Scottie Soria [id number]. Order for cardizem drip renewal states 8mL/hr for 1230; please advise. -David [phone]
[2019-04-25] MEDS ORDERED: vancomycin/NS 1 GM ADD-VANTAGE 250 ML IV ONE (15:10)
--- NOTE | 2019-04-25 15:10 | NUR ---
WOUND INFECTION EDUCATION PROVIDED BY WOUND CARE 1. Patient instructed to call their primary doctor, or go the ED immediately if any of the following symptoms occur: * Increased pain in wound * Increase in drainage from the wound * Redness in the skin surrounding the wound * Warmth in the skin surrounding the wound * Bleeding from the wound * Temperature of 101 or greater 2. If any of these occur while in the hospital tell a nurse immediately. Addendum: 04/25/19 at 1510 by Kay Curry RN Amended: Links added.
--- NOTE | 2019-04-25 16:02 | NUR ---
PAGER ID: [phone] MESSAGE: [phone] Scottie Soria: FYI before dc'ing cardizem drip pt heart rate is starting to climb in the mid 90's - high 100's. Do you want to still dc the cardizem drip? Thank you David [phone]
[2019-04-25] MEDS ORDERED: diltiazem-D5W 125mg/125ml 125 ML IV SCH (16:25)
--- NOTE | 2019-04-25 16:31 | NUR ---
Note made by RN regarding Dr's order to change cardizem drip from 8mg/hr to 5mg/hr, but no order was placed. Order placed on day shift at 1625. Awaiting further instruction from Dr Hester.
--- NOTE | 2019-04-25 16:51 | NUR ---
Spoke to Dr. Hester in regards to pt, received orders to continue cardizem drip at 5ml/hr and to increase coreg to 6.25 mg BID, give PM dose now.
[2019-04-25] MEDS: carvedilol 6.25mg tablet PO SCH (17:09)
[2019-04-25 17:26] LABS: ANISOCYTOSIS 2+; PLATELET ESTIMATE DECREASED; TOTAL CELLS COUNTED 100; TOXIC GRANULATION 2+
[2019-04-25 17:27] LABS: BURR CELLS 3+; POLYCHROMASIA 1+
[2019-04-25 17:28] LABS: ELLIPTOCYTES FEW; POIKILOCYTOSIS 1+
[2019-04-25] MEDS: diltiazem-NS 100mg/100ml 100 ML IV SCH (17:31)
--- NOTE | 2019-04-25 18:35 | NUR ---
Patient in room PCU 3017. I have received report from Latia SÁNCHEZ and had the opportunity to ask questions and assume patient care.
--- NOTE | 2019-04-25 18:42 | NUR ---
Problems reprioritized. Patient report given, questions answered & plan of care reviewed with GONZALO Kevin.
--- NOTE | 2019-04-25 19:33 | NUR ---
Dr Ruiz gave an order to hold levonox @ 199904/25/19
[2019-04-25] MEDS: insulin glargine (Lantus) pen - multi-dose SQ SCH (21:00)
--- NOTE | 2019-04-25 23:07 | NUR ---
Lantus did not given because of several low blood sugar in the afternoon, restart protocol again
[2019-04-26] VITALS (15 sets, daily range): BP systolic 87–148; BP diastolic 35–87
[2019-04-26] MEDS: ipratropium/albuterol 3ml nebule NEB SCH ×4 (02:34→22:02)
[2019-04-26] MEDS: VANCOMYCIN LEVEL IV SCH (03:00)
--- NOTE | 2019-04-26 05:26 | NUR ---
dressing was changed two times last night, there are tears on the big hematoma on lower right arm,
--- NOTE | 2019-04-26 06:25 | NUR ---
Problems reprioritized. Patient report given, questions answered & plan of care reviewed with Fco SÁNCHEZ .
--- NOTE | 2019-04-26 06:32 | NUR ---
Patient in room PCU 3017. I have received report from Dorita SÁNCHEZ and had the opportunity to ask questions and assume patient care.
[2019-04-26 06:40] LABS: BASOPHILS % (AUTO) 0.3 % (0-1); EOSINOPHILS % (AUTO) 0 % (0-6); HEMATOCRIT 25.6 % (42.0-52.0); HEMOGLOBIN 8.2 g/dl (14.0-17.9); LYMPHOCYTES # (AUTO) 0.4 X10'3 (1.1-4.8); LYMPHOCYTES % (AUTO) 2.6 % (21-51); MEAN CORPUSCULAR HGB CONC 32.1 g/dL (33.0-36.5); MEAN PLATELET VOLUME 9.6 FL (7.4-10.4); MONOCYTES # (AUTO) 0.5 X10'3 (0-0.9); MONOCYTES % (AUTO) 3.1 % (2-12); NEUTROPHILS # (AUTO) 14.4 X10'3 (1.8-7.7); PLATELET COUNT 126 X10'3 (140-440); RED BLOOD COUNT 3.05 X10'6 (4.70-6.10); RED CELL DISTRIBUTION WIDTH 19.1 % (11.5-14.5); WHITE BLOOD COUNT 15.4 X10'3 (4.5-11.0)
[2019-04-26 06:42] LABS: ALANINE AMINOTRANSFERASE 21 U/L (12-78); ALBUMIN 1.9 G/DL (3.4-5.0); ALBUMIN/GLOBULIN RATIO 0.6 (1.1-1.5); ALKALINE PHOSPHATASE 39 IU/L (46-116); ANION GAP 10 (8-16); ASPARTATE AMINO TRANSFERASE 32 U/L (10-37); BILIRUBIN,TOTAL 0.4 MG/DL (0.1-1.0); BLOOD UREA NITROGEN 68 MG/DL (7-18); BUN/CREATININE RATIO 23.9 (5.4-32.0); CALCIUM 8.5 MG/DL (8.5-10.1); CHLORIDE 108 MMOL/L (99-107); CREATININE 2.85 MG/DL (0.60-1.10); GLUCOSE 93 MG/DL (70-104); MAGNESIUM 1.8 MG/DL (1.5-2.4); POTASSIUM 4.5 MMOL/L (3.5-5.1); SODIUM 140 MMOL/L (135-145); TOTAL PROTEIN 5.3 G/DL (6.4-8.2); eGFR 21 ML/MIN
[2019-04-26] MEDS ORDERED: vancomycin/NS 1 GM ADD-VANTAGE 250 ML IV ONE (07:25)
[2019-04-26] MEDS: K and/or MAG REPLACEMENT MC SCH (08:00)
[2019-04-26] MEDS: enoxaparin 80mg/0.8ml syringe SUBCUT SCH ×2 (08:00→20:00)
[2019-04-26] MEDS: pyridostigmine br 60mg tablet PO SCH ×4 (08:53→21:03)
[2019-04-26] MEDS: calcium carbonate/vitamin D3 tablet PO SCH ×2 (08:54→21:03)
[2019-04-26] MEDS: nitrofurantoin macrocrystal 50mg capsule PO SCH (08:54)
[2019-04-26] MEDS: oxybutynin 5mg tablet PO SCH ×3 (08:54→21:03)
[2019-04-26] MEDS: pantoprazole 40mg Tablet.DR PO SCH (08:54)
[2019-04-26] MEDS: ferrous sulfate 325mg tablet PO SCH ×4 (08:54→21:03)
[2019-04-26] MEDS: furosemide 20MG tablet PO SCH ×2 (08:54→21:03)
[2019-04-26] MEDS: tamsulosin 0.4mg capsule PO SCH (08:54)
[2019-04-26] MEDS: aspirin 81mg tab.chew PO SCH (08:54)
[2019-04-26] MEDS: atorvastatin 20mg tablet PO SCH (08:55)
[2019-04-26] MEDS: allopurinol 300 MG tablet PO SCH (08:55)
[2019-04-26] MEDS: prednisone 10mg tablet PO SCH (08:55)
[2019-04-26] MEDS: docusate sod 100mg capsule PO SCH ×3 (08:55→21:03)
[2019-04-26] MEDS: carvedilol 6.25mg tablet PO SCH ×2 (08:55→20:00)
[2019-04-26] MEDS: acetaminophen 325mg tablet PO PRN (08:56)
[2019-04-26 11:00] LABS: ANISOCYTOSIS 2+; POIKILOCYTOSIS 1+; POLYCHROMASIA FEW; TOTAL CELLS COUNTED 100; TOXIC GRANULATION 2+
[2019-04-26 11:01] LABS: HYPOCHROMASIA 1+; PLATELET ESTIMATE DECREASED
[2019-04-26] MEDS: diltiazem-NS 100mg/100ml 100 ML IV SCH (13:17)
--- NOTE | 2019-04-26 14:28 | NUR ---
Spoke with pt's nurse who reported that dressings have remained clean dry and intact. Alginate + Xeroform + Nonadherents + Gauze + Gauze Roll is still appropriate at this time. Will continue to closely follow pt.
--- NOTE | 2019-04-26 17:23 | NUR ---
PAGER ID: [phone] MESSAGE: RE: Scottie Soria, room: 301. Pt's BPs are trending in 90's systolic. Heart rate has been high 50's-low 60's, no change in Pt's mentattion. Cardizem drip running at 5mg/hr. Do you want to lower Cardizem drip to 2.5mg/hr? -Fco [facility] Dr. Hester paged concerning Pt's low heart rate and low blood pressures.
--- NOTE | 2019-04-26 18:15 | NUR ---
Patient in room PCU 3017. I have received report from Fco SÁNCHEZ and had the opportunity to ask questions and assume patient care.
--- NOTE | 2019-04-26 18:15 | NUR ---
Problems reprioritized. Patient report given, questions answered & plan of care reviewed with Soraida SÁNCHEZ.
--- NOTE | 2019-04-26 18:15 | NUR ---
Per Dr. Hester orders; decrease Cardizem drip to 2.5mg/hr.
[2019-04-26] MEDS: insulin Lispro (HumaLOG) vial - multi-dose SQ SCH ×2 (19:18→21:58)
--- NOTE | 2019-04-26 20:33 | NUR ---
Patient bradying down to low 50's and 40's, BP 106/44. Shut cardizem drip off per Dr. Ruiz. Will continue to monitor.
[2019-04-26] MEDS: insulin glargine (Lantus) pen - multi-dose SQ SCH (21:59)
[2019-04-27 03:00] VITALS: BP 122/67
[2019-04-27] MEDS: VANCOMYCIN LEVEL IV SCH (03:00)
[2019-04-27] MEDS: ipratropium/albuterol 3ml nebule NEB SCH ×4 (03:12→20:59)
[2019-04-27 04:56] LABS: BASOPHILS % (AUTO) 0.1 % (0-1); EOSINOPHILS % (AUTO) 0 % (0-6); HEMATOCRIT 25.8 % (42.0-52.0); HEMOGLOBIN 8.3 g/dl (14.0-17.9); LYMPHOCYTES # (AUTO) 0.4 X10'3 (1.1-4.8); LYMPHOCYTES % (AUTO) 2.6 % (21-51); MEAN CORPUSCULAR HEMOGLOBIN 27.1 PG (27.0-31.0); MEAN CORPUSCULAR HGB CONC 32.3 g/dL (33.0-36.5); MEAN CORPUSCULAR VOLUME 83.9 FL (78-98); MEAN PLATELET VOLUME 9.5 FL (7.4-10.4); MONOCYTES # (AUTO) 0.5 X10'3 (0-0.9); MONOCYTES % (AUTO) 3.2 % (2-12); NEUTROPHILS # (AUTO) 14.6 X10'3 (1.8-7.7); NEUTROPHILS % (AUTO) 94.1 % (42-75); PLATELET COUNT 126 X10'3 (140-440); RED BLOOD COUNT 3.07 X10'6 (4.70-6.10); RED CELL DISTRIBUTION WIDTH 18.8 % (11.5-14.5); WHITE BLOOD COUNT 15.5 X10'3 (4.5-11.0)
[2019-04-27 05:37] LABS: ALANINE AMINOTRANSFERASE 37 U/L (12-78); ALBUMIN 1.9 G/DL (3.4-5.0); ALBUMIN/GLOBULIN RATIO 0.5 (1.1-1.5); ALKALINE PHOSPHATASE 61 IU/L (46-116); ANION GAP 11 (8-16); ASPARTATE AMINO TRANSFERASE 43 U/L (10-37); BILIRUBIN,TOTAL 0.3 MG/DL (0.1-1.0); BLOOD UREA NITROGEN 88 MG/DL (7-18); BUN/CREATININE RATIO 24.7 (5.4-32.0); CALCIUM 8.2 MG/DL (8.5-10.1); CHLORIDE 105 MMOL/L (99-107); CREATININE 3.56 MG/DL (0.60-1.10); GLUCOSE 91 MG/DL (70-104); POTASSIUM 4.6 MMOL/L (3.5-5.1); SODIUM 139 MMOL/L (135-145); TOTAL CARBON DIOXIDE 22.6 MMOL/L (24-32); TOTAL PROTEIN 5.7 G/DL (6.4-8.2); VANCOMYCIN,RANDOM 17.1 UG/ML; eGFR 16 ML/MIN
[2019-04-27 06:00] VITALS: BP 144/69
--- NOTE | 2019-04-27 06:20 | NUR ---
Problems reprioritized. Patient report given, questions answered & plan of care reviewed with Fco SÁNCHEZ.
--- NOTE | 2019-04-27 06:20 | NUR ---
Patient in room PCU 3017. I have received report from Soraida SÁNCHEZ and had the opportunity to ask questions and assume patient care.
[2019-04-27 06:33] LABS: TOTAL CELLS COUNTED 100
[2019-04-27 06:34] LABS: ANISOCYTOSIS 2+; PLATELET ESTIMATE DECREASED
[2019-04-27 06:35] LABS: POIKILOCYTOSIS FEW
[2019-04-27 06:38] LABS: LARGE PLATELETS FEW
[2019-04-27] MEDS: enoxaparin 80mg/0.8ml syringe SUBCUT SCH ×2 (08:00→20:00)
[2019-04-27] MEDS: K and/or MAG REPLACEMENT MC SCH (08:00)
[2019-04-27] MEDS: prednisone 10mg tablet PO SCH (08:19)
[2019-04-27] MEDS: atorvastatin 20mg tablet PO SCH (08:20)
[2019-04-27] MEDS: docusate sod 100mg capsule PO SCH ×3 (08:20→20:11)
[2019-04-27] MEDS: oxybutynin 5mg tablet PO SCH ×3 (08:21→20:11)
[2019-04-27] MEDS: pyridostigmine br 60mg tablet PO SCH ×4 (08:21→20:12)
[2019-04-27] MEDS: furosemide 20MG tablet PO SCH (08:21)
[2019-04-27] MEDS: ferrous sulfate 325mg tablet PO SCH ×4 (08:22→20:11)
[2019-04-27] MEDS: carvedilol 6.25mg tablet PO SCH ×2 (08:22→20:11)
[2019-04-27] MEDS: pantoprazole 40mg Tablet.DR PO SCH (08:23)
[2019-04-27] MEDS: aspirin 81mg tab.chew PO SCH (08:23)
[2019-04-27] MEDS: calcium carbonate/vitamin D3 tablet PO SCH ×2 (08:23→20:12)
[2019-04-27] MEDS: allopurinol 300 MG tablet PO SCH (08:23)
[2019-04-27] MEDS: tamsulosin 0.4mg capsule PO SCH (08:23)
[2019-04-27] MEDS: insulin Lispro (HumaLOG) vial - multi-dose SQ SCH ×3 (08:46→19:25)
[2019-04-27 11:00] VITALS: BP 128/75
[2019-04-27] MEDS: sodium chloride 0.45% 1,000 ML IV SCH ×2 (12:08→23:38)
[2019-04-27 13:51] LABS: RHEUM FACTOR QUAL REFLEX TITER NEGATIVE (Neg)
--- NOTE | 2019-04-27 13:55 | NUR ---
WOUND INFECTION EDUCATION PROVIDED BY WOUND CARE 1. Patient instructed to call their primary doctor, or go the ED immediately if any of the following symptoms occur: * Increased pain in wound * Increase in drainage from the wound * Redness in the skin surrounding the wound * Warmth in the skin surrounding the wound * Bleeding from the wound * Temperature of 101 or greater 2. If any of these occur while in the hospital tell a nurse immediately. Addendum: 04/27/19 at 1356 by Kay Curry RN Amended: Links added.
[2019-04-27] MEDS ORDERED: potassium Cl 20 mEq SR tablet PO PRN ×2 (14:40)
[2019-04-27] MEDS ORDERED: magnesium 4gm in 100ml NS 100 ML IV PRN (14:40)
[2019-04-27] MEDS ORDERED: potassium CL 10mEq/100ml bag 100 ML IV PRN (14:40)
[2019-04-27] MEDS ORDERED: magnesium Cl slow-release 64mg tablet PO PRN (14:40)
[2019-04-27 15:00] VITALS: BP 140/50
--- NOTE | 2019-04-27 18:00 | NUR ---
Problems reprioritized. Patient report given, questions answered & plan of care reviewed with Abraham SÁNCHEZ.
[2019-04-27 19:00] VITALS: BP 128/73
--- NOTE | 2019-04-27 19:30 | NUR ---
Insulin dose adjusted per conversation with nurse on shift, pt's BS have been dipping low and he would like to take a little less insulin to avoid hypoglycemia, according to protocol pt should receive 6 units at level 2: 1 for BS of 159, and 5 for 52 carbs. pt was given 4 total 1 correction and 3 for carbs. all this was approved by the nurse on shift who is taking care of pt given his hand off report and the pt trends.
[2019-04-27] MEDS: lactobacillus rhamnosus 10,000 MMU CELLS/CAPSULE PO SCH (20:12)
[2019-04-27] MEDS: insulin glargine (Lantus) pen - multi-dose SQ SCH (20:23)
[2019-04-27 23:00] VITALS: BP 119/62
[2019-04-28] MEDS: ipratropium/albuterol 3ml nebule NEB SCH ×4 (02:20→20:50)
[2019-04-28 03:00] VITALS: BP 128/49
[2019-04-28] MEDS: VANCOMYCIN LEVEL IV SCH (03:00)
[2019-04-28 05:32] LABS: BASOPHILS % (AUTO) 0.1 % (0-1); EOSINOPHILS % (AUTO) 0.1 % (0-6); HEMATOCRIT 25.8 % (42.0-52.0); HEMOGLOBIN 8.3 g/dl (14.0-17.9); LYMPHOCYTES # (AUTO) 0.4 X10'3 (1.1-4.8); LYMPHOCYTES % (AUTO) 3.1 % (21-51); MEAN CORPUSCULAR HEMOGLOBIN 27.1 PG (27.0-31.0); MEAN CORPUSCULAR HGB CONC 32.3 g/dL (33.0-36.5); MEAN CORPUSCULAR VOLUME 83.8 FL (78-98); MEAN PLATELET VOLUME 9.1 FL (7.4-10.4); MONOCYTES # (AUTO) 0.6 X10'3 (0-0.9); MONOCYTES % (AUTO) 4.4 % (2-12); NEUTROPHILS # (AUTO) 11.7 X10'3 (1.8-7.7); NEUTROPHILS % (AUTO) 92.3 % (42-75); PLATELET COUNT 132 X10'3 (140-440); RED BLOOD COUNT 3.07 X10'6 (4.70-6.10); RED CELL DISTRIBUTION WIDTH 18.6 % (11.5-14.5); WHITE BLOOD COUNT 12.7 X10'3 (4.5-11.0)
[2019-04-28 06:00] VITALS: BP_SYST 127; BP_SYST 159; BP_DIAS 69; BP_DIAS 86
[2019-04-28 06:02] LABS: ALANINE AMINOTRANSFERASE 39 U/L (12-78); ALBUMIN 1.8 G/DL (3.4-5.0); ALBUMIN/GLOBULIN RATIO 0.5 (1.1-1.5); ALKALINE PHOSPHATASE 63 IU/L (46-116); ANION GAP 11 (8-16); ASPARTATE AMINO TRANSFERASE 24 U/L (10-37); BILIRUBIN,TOTAL 0.3 MG/DL (0.1-1.0); BLOOD UREA NITROGEN 89 MG/DL (7-18); BUN/CREATININE RATIO 26.3 (5.4-32.0); CALCIUM 8.4 MG/DL (8.5-10.1); CHLORIDE 104 MMOL/L (99-107); CREATININE 3.39 MG/DL (0.60-1.10); GLUCOSE 111 MG/DL (70-104); MAGNESIUM 1.9 MG/DL (1.5-2.4); POTASSIUM 4.3 MMOL/L (3.5-5.1); SODIUM 138 MMOL/L (135-145); TOTAL CARBON DIOXIDE 22.8 MMOL/L (24-32); TOTAL PROTEIN 5.8 G/DL (6.4-8.2); VANCOMYCIN,RANDOM 14.3 UG/ML; eGFR 17 ML/MIN
--- NOTE | 2019-04-28 06:20 | NUR ---
Patient in room PCU 3017. I have received report from Abraham SÁNCHEZ and had the opportunity to ask questions and assume patient care.
[2019-04-28 06:43] LABS: TOTAL CELLS COUNTED 100
[2019-04-28 06:44] LABS: ANISOCYTOSIS 2+; PLATELET ESTIMATE DECREASED; POIKILOCYTOSIS FEW; POLYCHROMASIA 1+; TOXIC GRANULATION 3+
[2019-04-28] MEDS ORDERED: vancomycin/NS 1 GM ADD-VANTAGE 250 ML IV ONE (06:55)
[2019-04-28] MEDS ORDERED: vancomycin/NS 1 GM ADD-VANTAGE 250 ML IV PRN (06:55)
[2019-04-28] MEDS: prednisone 10mg tablet PO SCH (07:22)
[2019-04-28] MEDS: aspirin 81mg tab.chew PO SCH (07:23)
[2019-04-28] MEDS: pantoprazole 40mg Tablet.DR PO SCH (07:23)
[2019-04-28] MEDS: pyridostigmine br 60mg tablet PO SCH ×4 (07:23→20:32)
[2019-04-28] MEDS: tamsulosin 0.4mg capsule PO SCH (07:23)
[2019-04-28] MEDS: ferrous sulfate 325mg tablet PO SCH ×4 (07:23→20:32)
[2019-04-28] MEDS: oxybutynin 5mg tablet PO SCH ×3 (07:23→20:32)
[2019-04-28] MEDS: carvedilol 6.25mg tablet PO SCH ×2 (07:24→20:31)
[2019-04-28] MEDS: calcium carbonate/vitamin D3 tablet PO SCH ×2 (07:24→20:32)
[2019-04-28] MEDS: lactobacillus rhamnosus 10,000 MMU CELLS/CAPSULE PO SCH ×2 (07:30→20:31)
[2019-04-28] MEDS: K and/or MAG REPLACEMENT MC SCH (07:41)
[2019-04-28] MEDS: docusate sod 100mg capsule PO SCH ×3 (07:42→20:32)
[2019-04-28] MEDS: enoxaparin 80mg/0.8ml syringe SUBCUT SCH ×2 (08:00→20:33)
[2019-04-28] MEDS: sodium chloride 0.45% 1,000 ML IV SCH ×2 (09:42→17:23)
[2019-04-28] MEDS: insulin Lispro (HumaLOG) vial - multi-dose SQ SCH ×2 (09:47→13:30)
[2019-04-28 15:00] VITALS: BP 108/66
[2019-04-28] MEDS: acetaminophen 325mg tablet PO PRN (17:23)
--- NOTE | 2019-04-28 17:30 | NUR ---
Reassessment: patient and son seen at bedside, given written high protein education handout and written DM education handout with referral to outpatient DM class on wednesday with verbal review with RD contact information. Obtained food preferences, wants double protein and ensure pudding with dinner, d/w dietary. Recommendations: 1) Continue with heart healthy CHO controlled diet with pureed consistency and nectar thick liquids per OPERATER recs 2) Send ensure pudding with dinner, med plus nectar thick liquid drink with lunch 3) Routine bowel care 4) Wt per rx Addendum: 04/28/19 at [address] Amended: Links added.
--- NOTE | 2019-04-28 18:45 | NUR ---
Problems reprioritized. Patient report given, questions answered & plan of care reviewed with Abraham SÁNCHEZ
[2019-04-28 19:00] VITALS: BP 133/68
[2019-04-28] MEDS: insulin glargine (Lantus) pen - multi-dose SQ SCH (21:22)
[2019-04-28 23:00] VITALS: BP 113/93
[2019-04-29 03:00] VITALS: BP 127/76
[2019-04-29] MEDS: VANCOMYCIN LEVEL IV SCH (03:00)
[2019-04-29] MEDS: ipratropium/albuterol 3ml nebule NEB SCH ×6 (03:03→23:37)
[2019-04-29] MEDS: sodium chloride 0.45% 1,000 ML IV SCH (03:59)
[2019-04-29 06:06] LABS: BASOPHILS % (AUTO) 0.1 % (0-1); EOSINOPHILS % (AUTO) 0.3 % (0-6); HEMATOCRIT 27.2 % (42.0-52.0); HEMOGLOBIN 8.9 g/dl (14.0-17.9); LYMPHOCYTES # (AUTO) 0.6 X10'3 (1.1-4.8); LYMPHOCYTES % (AUTO) 6.3 % (21-51); MEAN CORPUSCULAR HEMOGLOBIN 27.4 PG (27.0-31.0); MEAN CORPUSCULAR HGB CONC 32.7 g/dL (33.0-36.5); MEAN PLATELET VOLUME 9.2 FL (7.4-10.4); MONOCYTES # (AUTO) 0.6 X10'3 (0-0.9); MONOCYTES % (AUTO) 6.1 % (2-12); NEUTROPHILS % (AUTO) 87.2 % (42-75); PLATELET COUNT 154 X10'3 (140-440); RED BLOOD COUNT 3.24 X10'6 (4.70-6.10); RED CELL DISTRIBUTION WIDTH 18.8 % (11.5-14.5); WHITE BLOOD COUNT 9.1 X10'3 (4.5-11.0)
--- NOTE | 2019-04-29 06:37 | NUR ---
Problems reprioritized. Patient report given, questions answered & plan of care reviewed with Joy SÁNCHEZ.
--- NOTE | 2019-04-29 07:02 | NUR ---
AM [facility] assessment of 59. Pt having difficulty waking and staying awake, words slurred, speech slowed. Primary RN Danielle notified.
[2019-04-29 07:04] LABS: ANISOCYTOSIS 2+; MICROCYTOSIS 1+; PLATELET ESTIMATE NORMAL; POIKILOCYTOSIS FEW
[2019-04-29 07:11] LABS: ALANINE AMINOTRANSFERASE 33 U/L (12-78); ALBUMIN 1.9 G/DL (3.4-5.0); ALBUMIN/GLOBULIN RATIO 0.5 (1.1-1.5); ALKALINE PHOSPHATASE 68 IU/L (46-116); ANION GAP 14 (8-16); ASPARTATE AMINO TRANSFERASE 21 U/L (10-37); BILIRUBIN,TOTAL 0.3 MG/DL (0.1-1.0); BLOOD UREA NITROGEN 94 MG/DL (7-18); BUN/CREATININE RATIO 29.8 (5.4-32.0); CALCIUM 7.9 MG/DL (8.5-10.1); CHLORIDE 106 MMOL/L (99-107); CREATININE 3.15 MG/DL (0.60-1.10); GLUCOSE 78 MG/DL (70-104); MAGNESIUM 1.9 MG/DL (1.5-2.4); POTASSIUM 4.2 MMOL/L (3.5-5.1); SODIUM 142 MMOL/L (135-145); TOTAL CARBON DIOXIDE 21.9 MMOL/L (24-32); TOTAL PROTEIN 5.6 G/DL (6.4-8.2); VANCOMYCIN,RANDOM 17.4 UG/ML; eGFR 19 ML/MIN
[2019-04-29 07:30] VITALS: BP 110/80
[2019-04-29] MEDS: K and/or MAG REPLACEMENT MC SCH (08:00)
[2019-04-29] MEDS: prednisone 10mg tablet PO SCH (08:51)
[2019-04-29] MEDS: docusate sod 100mg capsule PO SCH ×3 (08:51→22:42)
[2019-04-29] MEDS: tamsulosin 0.4mg capsule PO SCH (08:51)
[2019-04-29] MEDS: pantoprazole 40mg Tablet.DR PO SCH (08:51)
[2019-04-29] MEDS: calcium carbonate/vitamin D3 tablet PO SCH ×2 (08:51→22:42)
[2019-04-29] MEDS: carvedilol 6.25mg tablet PO SCH ×2 (08:51→22:41)
[2019-04-29] MEDS: lactobacillus rhamnosus 10,000 MMU CELLS/CAPSULE PO SCH ×2 (08:51→22:42)
[2019-04-29] MEDS: aspirin 81mg tab.chew PO SCH (08:51)
[2019-04-29] MEDS: oxybutynin 5mg tablet PO SCH ×3 (08:51→22:42)
[2019-04-29] MEDS: ferrous sulfate 325mg tablet PO SCH ×4 (08:51→22:43)
[2019-04-29] MEDS: pyridostigmine br 60mg tablet PO SCH ×4 (08:51→22:43)
[2019-04-29] MEDS: enoxaparin 80mg/0.8ml syringe SUBCUT SCH (08:57)
[2019-04-29] MEDS ORDERED: ipratropium/albuterol 3ml nebule NEB PRN (09:20)
[2019-04-29] MEDS ORDERED: methylPREDNISolone sod succ 125mg/2ml vial IV ONE (09:45)
[2019-04-29] MEDS: furosemide 40mg/4ml inj IV SCH (10:41)
[2019-04-29 11:00] VITALS: BP 91/53
[2019-04-29] MEDS: methylPREDNISolone sod succ 125mg/2ml vial IV SCH ×2 (13:08→22:43)
[2019-04-29 15:00] VITALS: BP 112/50
[2019-04-29 18:00] VITALS: BP 120/58
--- NOTE | 2019-04-29 18:45 | NUR ---
Problems reprioritized. Patient report given, questions answered & plan of care reviewed with GONZALO Paul.
--- NOTE | 2019-04-29 18:46 | NUR ---
Patient in room PCU 3017. I have received report from GONZALO Santos and had the opportunity to ask questions and assume patient care.
[2019-04-29] MEDS: insulin Lispro (HumaLOG) vial - multi-dose SQ SCH ×2 (19:26→22:31)
[2019-04-29 22:00] VITALS: BP 144/56
[2019-04-29] MEDS: insulin glargine (Lantus) pen - multi-dose SQ SCH (22:30)
[2019-04-30] MEDS: methylPREDNISolone sod succ 125mg/2ml vial IV SCH ×4 (01:58→20:29)
[2019-04-30 02:00] VITALS: BP 112/60
[2019-04-30] MEDS: VANCOMYCIN LEVEL IV SCH (03:00)
[2019-04-30] MEDS: ipratropium/albuterol 3ml nebule NEB SCH ×6 (04:15→23:00)
[2019-04-30 06:00] VITALS: BP 135/83
[2019-04-30 06:48] LABS: MAGNESIUM 1.9 MG/DL (1.5-2.4)
--- NOTE | 2019-04-30 06:48 | NUR ---
Problems reprioritized. Patient report given, questions answered & plan of care reviewed with GONZALO Ferrara.
[2019-04-30] MEDS: K and/or MAG REPLACEMENT MC SCH (08:00)
[2019-04-30] MEDS: carvedilol 6.25mg tablet PO SCH ×2 (08:40→20:31)
[2019-04-30] MEDS: ferrous sulfate 325mg tablet PO SCH ×4 (08:40→20:30)
[2019-04-30] MEDS: pyridostigmine br 60mg tablet PO SCH ×4 (08:40→20:31)
[2019-04-30] MEDS: pantoprazole 40mg Tablet.DR PO SCH (08:40)
[2019-04-30] MEDS: docusate sod 100mg capsule PO SCH ×3 (08:40→20:31)
[2019-04-30] MEDS: tamsulosin 0.4mg capsule PO SCH (08:40)
[2019-04-30] MEDS: calcium carbonate/vitamin D3 tablet PO SCH ×2 (08:40→20:30)
[2019-04-30] MEDS: furosemide 40mg/4ml inj IV SCH (08:40)
[2019-04-30] MEDS: lactobacillus rhamnosus 10,000 MMU CELLS/CAPSULE PO SCH ×2 (08:40→20:30)
[2019-04-30] MEDS: oxybutynin 5mg tablet PO SCH ×3 (08:40→20:31)
[2019-04-30] MEDS: insulin Lispro (HumaLOG) vial - multi-dose SQ SCH ×3 (08:44→18:52)
[2019-04-30 09:09] LABS: BASOPHILS % (AUTO) 0.1 % (0-1); EOSINOPHILS % (AUTO) 0 % (0-6); HEMATOCRIT 28.4 % (42.0-52.0); HEMOGLOBIN 9.1 g/dl (14.0-17.9); LYMPHOCYTES # (AUTO) 0.3 X10'3 (1.1-4.8); LYMPHOCYTES % (AUTO) 2.5 % (21-51); MEAN CORPUSCULAR HEMOGLOBIN 27.2 PG (27.0-31.0); MEAN CORPUSCULAR HGB CONC 32.1 g/dL (33.0-36.5); MEAN CORPUSCULAR VOLUME 84.5 FL (78-98); MEAN PLATELET VOLUME 9.3 FL (7.4-10.4); MONOCYTES # (AUTO) 0.2 X10'3 (0-0.9); MONOCYTES % (AUTO) 2.3 % (2-12); NEUTROPHILS # (AUTO) 9.5 X10'3 (1.8-7.7); NEUTROPHILS % (AUTO) 95.1 % (42-75); PLATELET COUNT 217 X10'3 (140-440); RED BLOOD COUNT 3.36 X10'6 (4.70-6.10); RED CELL DISTRIBUTION WIDTH 18.4 % (11.5-14.5)
[2019-04-30 09:29] LABS: ALANINE AMINOTRANSFERASE 28 U/L (12-78); ALBUMIN/GLOBULIN RATIO 0.5 (1.1-1.5); ALKALINE PHOSPHATASE 61 IU/L (46-116); ANION GAP 13 (8-16); ASPARTATE AMINO TRANSFERASE 10 U/L (10-37); BILIRUBIN,TOTAL 0.4 MG/DL (0.1-1.0); BLOOD UREA NITROGEN 99 MG/DL (7-18); BUN/CREATININE RATIO 32.2 (5.4-32.0); CALCIUM 8.2 MG/DL (8.5-10.1); CHLORIDE 105 MMOL/L (99-107); CREATININE 3.07 MG/DL (0.60-1.10); GLUCOSE 222 MG/DL (70-104); POTASSIUM 4.1 MMOL/L (3.5-5.1); SODIUM 140 MMOL/L (135-145); TOTAL CARBON DIOXIDE 21.9 MMOL/L (24-32); TOTAL PROTEIN 5.9 G/DL (6.4-8.2); eGFR 19 ML/MIN
[2019-04-30 11:00] VITALS: BP 140/90
[2019-04-30] MEDS: normal saline 1000ml 1,000 ML IV SCH (13:32)
[2019-04-30 15:00] VITALS: BP 134/89
--- NOTE | 2019-04-30 18:30 | NUR ---
Patient in room PCU 3017. I have received report from Alem SÁNCHEZ and had the opportunity to ask questions and assume patient care.
[2019-04-30 19:00] VITALS: BP 130/75
[2019-04-30] MEDS ORDERED: ringers solution, lacted 1,000 ML IV SCH (19:11)
[2019-04-30] MEDS ORDERED: morphine 4 MG/ML inj SYRINge IV PRN (19:15)
[2019-04-30] MEDS ORDERED: ondansetron/PF 4mg/2ml inj IV PRN (19:15)
[2019-04-30] MEDS: insulin glargine (Lantus) pen - multi-dose SQ SCH (20:50)
[2019-04-30 21:30] VITALS: BP 133/68
--- NOTE | 2019-04-30 22:11 | NUR ---
Patient down to OR at this time for debridement of right arm. All night meds were given and he is stable at this time. Surgery consent was signed and taken with OR nurse. Report was called to recovery room nurse.
[2019-04-30] MEDS ORDERED: BUPIVAcaine/PF 2.5 mg/ml (0.25%) 30ml vial ONE (22:35)
[2019-04-30] MEDS ORDERED: fentaNYL/PF 50MCG/1 ML 2ML syringe ONE (22:54)
[2019-04-30] MEDS ORDERED: ketamine 50mg/5ml syringe ONE (22:55)
[2019-04-30] MEDS ORDERED: sevoflurane 250ml liquid IH ONE (22:56)
[2019-04-30] MEDS ORDERED: sugammadex 200mg/2ml injection IV ONE (23:41)
[2019-04-30] MEDS ORDERED: ePHEDrine 50MG/ML INJ. ONE (23:49)
[2019-04-30] MEDS ORDERED: hydrocortisone sod succ/PF 100mg/2ml inj. ONE (23:49)
[2019-04-30] MEDS ORDERED: rocuronium 10mg/ml inj IV ONE (23:49)
[2019-04-30] MEDS ORDERED: LIDOcaine 2% (20mg/ml) 5ml vial ONE (23:49)
[2019-05-01] VITALS (20 sets, daily range): BP systolic 114–167; BP diastolic 42–102
--- NOTE | 2019-05-01 00:10 | NUR ---
Received from OR via BED, accompanied by Anesthesiologist DR LAKE--- and report given by Anesthesiolgist. PATIENT WAKING UP STILL, DENIES PAIN, V/S WNL, NEUROVASCULAR CHECKS INTACT, 20G PIV LUE, SCD ON, KIRLEX GAUZE WET TO DRY DRESSING TO RUE CDI WITH 2 SMALL SPOTS OF BREAK THROUGH RED STAINS TO DRESSING AT THIS TIME.RUE ELEVATED, F/C DRAINING CLEAR YELLOW URINE
[2019-05-01] MEDS ORDERED: ondansetron/PF 4mg/2ml inj ONE (00:14)
--- NOTE | 2019-05-01 00:28 | NUR ---
Patient in room PCU 3017. I have received report from recovery room nurse and had the opportunity to ask questions and awaiting arrival of patient back to the PCU unit.
--- NOTE | 2019-05-01 01:00 | NUR ---
Patient back from the OR at this time. He is still sleeping. No distress noted. Vitals are stable and will continue to monitor post op vitals. Patient placed back on telemetry monitoring. He is on two liters oxygen nasal cannula. Right arm is wrapped with Kerlex and will monitor for further drainage. Sons are at bedside. Will continue to monitor.
--- NOTE | 2019-05-01 01:00 | NUR ---
PATIENT VERY SLEEPY BUT WAKES UP EASILY AND FOLLOWS COMMANDS, DENIES PAIN, V/S WNL, NEUROVASCULAR CHECKS INTACT, 20G PIV LUE, SCD ON, KIRLEX GAUZE WET TO DRY DRESSING TO RUE CDI WITH SOME AREAS OF BREAK THROUGH RED STAINS TO DRESSING AT THIS TIME WHICH WAS REINFORCED WITH KIRLEX.RUE ELEVATED, F/C DRAINING CLEAR YELLOW URINE. PCU HAS PATIENTS TELE AND AGREED TO PLACE IT BACK ON HIM ORDERED. . PATIENT TAKEN TO 3017A WITH ALL BELONGINGS AND HOOKED UP TO MONITORS IN ROOM AND REPORT GIVEN TO RN WHO HAS TAKEN OVER PATIENT CARE.
[2019-05-01] MEDS: methylPREDNISolone sod succ 125mg/2ml vial IV SCH ×3 (01:13→13:36)
[2019-05-01] MEDS: normal saline 1000ml 1,000 ML IV SCH ×2 (01:13→17:54)
--- NOTE | 2019-05-01 01:22 | NUR ---
Patient is very sleepy but he is arousable and able to answer questions appropriately.
[2019-05-01] MEDS: VANCOMYCIN LEVEL IV SCH (03:00)
[2019-05-01] MEDS: ipratropium/albuterol 3ml nebule NEB SCH ×6 (03:54→23:49)
[2019-05-01 05:57] LABS: BASOPHILS % (AUTO) 0 % (0-1); EOSINOPHILS % (AUTO) 0 % (0-6); HEMATOCRIT 26.7 % (42.0-52.0); HEMOGLOBIN 8.6 g/dl (14.0-17.9); LYMPHOCYTES # (AUTO) 0.3 X10'3 (1.1-4.8); LYMPHOCYTES % (AUTO) 2.6 % (21-51); MEAN CORPUSCULAR HEMOGLOBIN 26.8 PG (27.0-31.0); MEAN CORPUSCULAR HGB CONC 32.2 g/dL (33.0-36.5); MEAN CORPUSCULAR VOLUME 83.2 FL (78-98); MEAN PLATELET VOLUME 8.3 FL (7.4-10.4); MONOCYTES # (AUTO) 0.2 X10'3 (0-0.9); MONOCYTES % (AUTO) 2.4 % (2-12); NEUTROPHILS # (AUTO) 9.3 X10'3 (1.8-7.7); PLATELET COUNT 245 X10'3 (140-440); RED BLOOD COUNT 3.21 X10'6 (4.70-6.10); RED CELL DISTRIBUTION WIDTH 18.7 % (11.5-14.5); WHITE BLOOD COUNT 9.8 X10'3 (4.5-11.0)
[2019-05-01 06:21] LABS: ALANINE AMINOTRANSFERASE 25 U/L (12-78); ALBUMIN 1.9 G/DL (3.4-5.0); ALBUMIN/GLOBULIN RATIO 0.5 (1.1-1.5); ALKALINE PHOSPHATASE 51 IU/L (46-116); ANION GAP 10 (8-16); ASPARTATE AMINO TRANSFERASE 8 U/L (10-37); BILIRUBIN,TOTAL 0.2 MG/DL (0.1-1.0); BLOOD UREA NITROGEN 99 MG/DL (7-18); BUN/CREATININE RATIO 34.9 (5.4-32.0); CALCIUM 8.2 MG/DL (8.5-10.1); CHLORIDE 108 MMOL/L (99-107); CREATININE 2.84 MG/DL (0.60-1.10); GLUCOSE 167 MG/DL (70-104); POTASSIUM 4.5 MMOL/L (3.5-5.1); SODIUM 143 MMOL/L (135-145); TOTAL CARBON DIOXIDE 24.9 MMOL/L (24-32); TOTAL PROTEIN 5.4 G/DL (6.4-8.2); eGFR 21 ML/MIN
--- NOTE | 2019-05-01 06:24 | NUR ---
Problems reprioritized. Patient report given, questions answered & plan of care reviewed with Maude SÁNCHEZ.
--- NOTE | 2019-05-01 06:24 | NUR ---
Patient in room PCU 3017. I have received report from Yuly SÁNCHEZ and had the opportunity to ask questions and assume patient care. Patient asleep in bed and resting comfortably. In no acute distress.
[2019-05-01] MEDS ORDERED: vancomycin/NS 1 GM ADD-VANTAGE 250 ML IV ONE (07:00)
[2019-05-01] MEDS: K and/or MAG REPLACEMENT MC SCH (08:00)
[2019-05-01] MEDS: ferrous sulfate 325mg tablet PO SCH ×4 (08:46→21:37)
[2019-05-01] MEDS: calcium carbonate/vitamin D3 tablet PO SCH ×2 (08:46→19:22)
[2019-05-01] MEDS: pyridostigmine br 60mg tablet PO SCH ×4 (08:46→21:38)
[2019-05-01] MEDS: lactobacillus rhamnosus 10,000 MMU CELLS/CAPSULE PO SCH ×2 (08:46→19:22)
[2019-05-01] MEDS: oxybutynin 5mg tablet PO SCH ×3 (08:47→21:38)
[2019-05-01] MEDS: carvedilol 6.25mg tablet PO SCH ×2 (08:47→19:22)
[2019-05-01] MEDS: tamsulosin 0.4mg capsule PO SCH (08:47)
[2019-05-01] MEDS: docusate sod 100mg capsule PO SCH ×3 (08:47→21:37)
[2019-05-01] MEDS: pantoprazole 40mg Tablet.DR PO SCH (08:47)
[2019-05-01] MEDS: furosemide 40mg/4ml inj IV SCH (08:47)
[2019-05-01] MEDS: insulin Lispro (HumaLOG) vial - multi-dose SQ SCH ×3 (09:02→19:21)
[2019-05-01 09:36] LABS: ANISOCYTOSIS 2+; HYPOCHROMASIA 2+; PLATELET ESTIMATE NORMAL; TOTAL CELLS COUNTED 100
[2019-05-01] MEDS: acetaminophen 325mg tablet PO PRN ×3 (11:00→23:45)
--- NOTE | 2019-05-01 11:27 | NUR ---
RN Consult: Pt s/p debridement of R arm lesions w/ 2-3 left intact for dermatology eval per surgeon note. Pt PO 50% avg meals prior to OR. Pt family requesting RD to review diet guidelines on pureed/NTL/HH/CCHO diet. RD provided written/verbal pureed/NTL ed to son and at bedside. Family continues to bring up thin liquid and ground food options which RD discourages given SUPPORT ASSISTANT recs at this time and unable to liberalize food options. RD reinforced need for thickened liquids, pureed food options, and provided RD contact information along w/ [email or web address] reference for liquid testing methods at home. Pt family reports dislikes apple/orange juices, would like double meats TID, green beans instead of carrots/peas since dislikes, brown sugar w/ cinnamon at breakfast for cream of wheat, and chocolate/vanilla ensure pudding alternating w/ meals. Dietary notified. LBM 04/30. Will continue to monitor for diet advancement per SUPPORT ASSISTANT recs and additional protein needs. Recommendations: 1) Continue with heart healthy CHO controlled diet with pureed consistency and nectar thick liquids per SUPPORT ASSISTANT recs 2) Send ensure pudding with dinner, med plus nectar thick liquid drink with lunch; double proteins TIDWM 3) honor pt food preferences; see above 4) Routine bowel care 5) Wt per rx Addendum: 05/01/19 at [address] Amended: Links added.
--- NOTE | 2019-05-01 18:57 | NUR ---
Patient in room PCU 3017. I have received report from Maude SÁNCHEZ and had the opportunity to ask questions and assume patient care.
[2019-05-01] MEDS: insulin glargine (Lantus) pen - multi-dose SQ SCH (21:49)
[2019-05-02] VITALS (17 sets, daily range): BP systolic 116–195; BP diastolic 30–86
[2019-05-02] MEDS: VANCOMYCIN LEVEL IV SCH (03:00)
[2019-05-02] MEDS: ipratropium/albuterol 3ml nebule NEB SCH ×6 (03:17→23:32)
[2019-05-02] MEDS: normal saline 1000ml 1,000 ML IV SCH ×2 (05:41→21:28)
[2019-05-02 05:58] LABS: BASOPHILS % (AUTO) 0.1 % (0-1); EOSINOPHILS % (AUTO) 0.1 % (0-6); HEMATOCRIT 22.3 % (42.0-52.0); HEMOGLOBIN 7.2 g/dl (14.0-17.9); LYMPHOCYTES # (AUTO) 0.5 X10'3 (1.1-4.8); LYMPHOCYTES % (AUTO) 5.1 % (21-51); MEAN CORPUSCULAR HGB CONC 32.3 g/dL (33.0-36.5); MEAN CORPUSCULAR VOLUME 83.8 FL (78-98); MEAN PLATELET VOLUME 8.7 FL (7.4-10.4); MONOCYTES # (AUTO) 0.5 X10'3 (0-0.9); MONOCYTES % (AUTO) 4.9 % (2-12); NEUTROPHILS # (AUTO) 8.7 X10'3 (1.8-7.7); NEUTROPHILS % (AUTO) 89.8 % (42-75); PLATELET COUNT 242 X10'3 (140-440); RED BLOOD COUNT 2.66 X10'6 (4.70-6.10); RED CELL DISTRIBUTION WIDTH 18.4 % (11.5-14.5); WHITE BLOOD COUNT 9.7 X10'3 (4.5-11.0)
--- NOTE | 2019-05-02 06:19 | NUR ---
Problems reprioritized. Patient report given, questions answered & plan of care reviewed with Maude SÁNCHEZ.
[2019-05-02 06:23] LABS: ALANINE AMINOTRANSFERASE 25 U/L (12-78); ALBUMIN 1.8 G/DL (3.4-5.0); ALBUMIN/GLOBULIN RATIO 0.6 (1.1-1.5); ALKALINE PHOSPHATASE 43 IU/L (46-116); ANION GAP 9 (8-16); ASPARTATE AMINO TRANSFERASE 10 U/L (10-37); BILIRUBIN,TOTAL 0.2 MG/DL (0.1-1.0); BLOOD UREA NITROGEN 116 MG/DL (7-18); BUN/CREATININE RATIO 38.3 (5.4-32.0); CALCIUM 7.3 MG/DL (8.5-10.1); CHLORIDE 108 MMOL/L (99-107); CREATININE 3.03 MG/DL (0.60-1.10); GLUCOSE 185 MG/DL (70-104); POTASSIUM 4.5 MMOL/L (3.5-5.1); SODIUM 140 MMOL/L (135-145); TOTAL PROTEIN 4.7 G/DL (6.4-8.2); VANCOMYCIN,RANDOM 18.6 UG/ML; eGFR 20 ML/MIN
--- NOTE | 2019-05-02 06:47 | NUR ---
Patient in room PCU 3017. I have received report from Yuly SÁNCHEZ and had the opportunity to ask questions and assume patient care. Patient asleep in bed. Resting comfortably and in no acute distress.
[2019-05-02] MEDS: K and/or MAG REPLACEMENT MC SCH (08:00)
[2019-05-02] MEDS: lactobacillus rhamnosus 10,000 MMU CELLS/CAPSULE PO SCH ×2 (09:08→20:00)
[2019-05-02] MEDS: furosemide 20 MG/2 ML vial IV SCH (09:08)
[2019-05-02] MEDS: prednisone 10mg tablet PO SCH (09:08)
[2019-05-02] MEDS: ferrous sulfate 325mg tablet PO SCH ×4 (09:09→21:00)
[2019-05-02] MEDS: tamsulosin 0.4mg capsule PO SCH (09:09)
[2019-05-02] MEDS: carvedilol 6.25mg tablet PO SCH ×2 (09:09→21:22)
[2019-05-02] MEDS: docusate sod 100mg capsule PO SCH ×3 (09:09→21:00)
[2019-05-02] MEDS: oxybutynin 5mg tablet PO SCH ×3 (09:09→21:00)
[2019-05-02] MEDS: calcium carbonate/vitamin D3 tablet PO SCH ×2 (09:09→20:00)
[2019-05-02] MEDS: pantoprazole 40mg Tablet.DR PO SCH (09:09)
[2019-05-02] MEDS: pyridostigmine br 60mg tablet PO SCH ×4 (09:09→21:00)
[2019-05-02] MEDS: insulin Lispro (HumaLOG) vial - multi-dose SQ SCH ×3 (09:32→21:39)
[2019-05-02] MEDS: acetaminophen 325mg tablet PO PRN ×2 (10:31→21:23)
[2019-05-02] MEDS ORDERED: silver nitrate applicator stick TP ONE (10:55)
--- NOTE | 2019-05-02 11:05 | NUR ---
New order from Dr. Burdick. Silver nitrate sticks x 10.
--- NOTE | 2019-05-02 15:00 | NUR ---
PAGER ID: [phone] MESSAGE: RE: Estella Scottie [phone]. Patient's arm has continued bleeding even after the silver nitrate with wound care. What would you like me to do? Please advise. Thank you. Maude [phone]
--- NOTE | 2019-05-02 15:00 | NUR ---
During hourly rounding, discovered patient has new onset annie bleeding that is saturating dressing that was changed at 1100. Will Page Dr. Burdick.
--- NOTE | 2019-05-02 15:05 | NUR ---
Per Dr. Burdick, contact Dr. Lara for new orders regarding patient's new onset bleeding to right upper arm.
--- NOTE | 2019-05-02 15:07 | NUR ---
Contacted Dr. Lara. He is on his way to assess the patient.
--- NOTE | 2019-05-02 15:25 | NUR ---
Per Charge, GONZALO Knapp applied pressure dressing to patient's upper right arm. Waiting for Dr. Ratliff. Patient's BP 117/70. Will continue to monitor.
[2019-05-02] MEDS ORDERED: LIDOcaine 1% 30ml preserv. free vial ONE (17:08)
--- NOTE | 2019-05-02 17:10 | NUR ---
Called report to Monico in OR recovery.
--- NOTE | 2019-05-02 17:20 | NUR ---
Patient to OR.
[2019-05-02] MEDS ORDERED: propofol 10mg/ml 20ml vial IV ONE (17:47)
[2019-05-02] MEDS ORDERED: LIDOcaine 1%/PF 5ML 10 MG/ML VIAL ONE (17:47)
--- NOTE | 2019-05-02 18:06 | NUR ---
Received from OR via BED, accompanied by Anesthesiologist DR DONALD- and report given by Anesthesiolgist. PATIENT WAKING UP STILL, DENIES PAIN, V/S WNL, NEUROVASCULAR CHECKS INTACT, 20G PIV LUE, SCD ON, KIRLEX GAUZE DRY DRESSING TO RUE CDI AND IS ELEVATED, F/C DRAINING CLEAR YELLOW URINE
--- NOTE | 2019-05-02 18:15 | NUR ---
Problems reprioritized. Patient report given, questions answered & plan of care reviewed with Yuly SÁNCHEZ. Patient in OR at transfer of care.
--- NOTE | 2019-05-02 18:26 | NUR ---
PATIENT ORIENTED AND FOLLOWS COMMANDS, DENIES PAIN, V/S WNL, NEUROVASCULAR CHECKS INTACT, 20G PIV LUE, SCD ON, KIRLEX GAUZE DRY DRESSING TO RUE CDI .RUE ELEVATED, F/C DRAINING CLEAR YELLOW URINE. PCU HAS PATIENTS TELE AND AGREED TO PLACE IT BACK ON HIM ORDERED. . PATIENT TAKEN TO 3017A WITH ALL BELONGINGS AND HOOKED UP TO MONITORS IN ROOM AND REPORT GIVEN TO RN WHO HAS TAKEN OVER PATIENT CARE.
--- NOTE | 2019-05-02 18:40 | NUR ---
Patient back from the OR at this time and with family at bedside. He is awake and alert and able to follow commands appropriately. Late dinner tray ordered for him. His vitals are stable. Dressing to right arm intact and with no soilage at this time. Received in report from the recovery room nurse to not change the dressing darius and Dr. Lara will come assess him tomorrow. Will continue to monitor.
--- NOTE | 2019-05-02 19:04 | NUR ---
Patient in room PCU 3017. I have received report from Maude SÁNCHEZ and had the opportunity to ask questions and assume patient care.
[2019-05-02] MEDS: insulin glargine (Lantus) pen - multi-dose SQ SCH (21:38)
[2019-05-03] VITALS (12 sets, daily range): BP systolic 135–182; BP diastolic 48–80
[2019-05-03] MEDS: VANCOMYCIN LEVEL IV SCH (03:00)
[2019-05-03] MEDS: ipratropium/albuterol 3ml nebule NEB SCH ×6 (03:30→22:47)
--- NOTE | 2019-05-03 03:45 | NUR ---
Patient had episode of some confusion and was found trying to get out of bed. He was sitting up on side of bed about to stand up. He states that he is trying to get out of here. He has pulled off his gown and completely taken off wound dressing to right arm. Slight amount of bleeding noted but not as much as there has been the previous days before the cauterization yesterday. Arm was redressed with wet to dry gauze dressing. He also pulled off condom catheter and is refusing to wear tele. He was assisted back in bed and all needs were met. Tabs alarm placed on patient.
[2019-05-03 06:20] LABS: BASOPHILS % (AUTO) 0.2 % (0-1); EOSINOPHILS % (AUTO) 0.3 % (0-6); LYMPHOCYTES # (AUTO) 0.7 X10'3 (1.1-4.8); LYMPHOCYTES % (AUTO) 5.9 % (21-51); MEAN CORPUSCULAR HEMOGLOBIN 26.5 PG (27.0-31.0); MEAN CORPUSCULAR VOLUME 82.8 FL (78-98); MEAN PLATELET VOLUME 8.5 FL (7.4-10.4); MONOCYTES # (AUTO) 0.5 X10'3 (0-0.9); NEUTROPHILS # (AUTO) 10.3 X10'3 (1.8-7.7); NEUTROPHILS % (AUTO) 89.6 % (42-75); PLATELET COUNT 302 X10'3 (140-440); RED BLOOD COUNT 2.47 X10'6 (4.70-6.10); RED CELL DISTRIBUTION WIDTH 18.5 % (11.5-14.5); WHITE BLOOD COUNT 11.5 X10'3 (4.5-11.0)
[2019-05-03 06:30] LABS: HEMATOCRIT 20.5 % (42.0-52.0); HEMOGLOBIN 6.6 g/dl (14.0-17.9)
--- NOTE | 2019-05-03 06:30 | NUR ---
Patient in room PCU 3018c. I have received report from GONZALO Emery and had the opportunity to ask questions and assume patient care. Pt in bed at time being repositioned by aids, no distress noted.
--- NOTE | 2019-05-03 06:36 | NUR ---
Problems reprioritized. Patient report given, questions answered & plan of care reviewed with Maude SÁNCHEZ and Aileen SÁNCHEZ.
--- NOTE | 2019-05-03 06:46 | NUR ---
Notified Dr. Ruiz of critical hgb and hct results.
--- NOTE | 2019-05-03 06:47 | NUR ---
Patient in room PCU 3017. I have received report from Yuly SÁNCHEZ and had the opportunity to ask questions and assume patient care. Patient awake in bed and being repositioned by staff. No complaints at this time. all immediate needs met.
[2019-05-03 06:50] LABS: ALANINE AMINOTRANSFERASE 13 U/L (12-78); ALBUMIN 1.9 G/DL (3.4-5.0); ALBUMIN/GLOBULIN RATIO 0.7 (1.1-1.5); ALKALINE PHOSPHATASE 40 IU/L (46-116); ANION GAP 12 (8-16); ASPARTATE AMINO TRANSFERASE 15 U/L (10-37); BILIRUBIN,TOTAL 0.3 MG/DL (0.1-1.0); BLOOD UREA NITROGEN 99 MG/DL (7-18); BUN/CREATININE RATIO 36.3 (5.4-32.0); CALCIUM 6.9 MG/DL (8.5-10.1); CHLORIDE 108 MMOL/L (99-107); CREATININE 2.73 MG/DL (0.60-1.10); GLUCOSE 94 MG/DL (70-104); MAGNESIUM 1.9 MG/DL (1.5-2.4); PHOSPHORUS 4.5 MG/DL (2.3-4.5); POTASSIUM 3.8 MMOL/L (3.5-5.1); SODIUM 141 MMOL/L (135-145); TOTAL CARBON DIOXIDE 21.5 MMOL/L (24-32); TOTAL PROTEIN 4.8 G/DL (6.4-8.2); VANCOMYCIN,RANDOM 13.5 UG/ML; eGFR 22 ML/MIN
[2019-05-03] MEDS ORDERED: vancomycin/NS 1 GM ADD-VANTAGE 250 ML IV ONE (07:40)
[2019-05-03] MEDS: K and/or MAG REPLACEMENT MC SCH (08:00)
[2019-05-03] MEDS: pantoprazole 40mg Tablet.DR PO SCH (08:00)
[2019-05-03] MEDS: prednisone 10mg tablet PO SCH (08:00)
[2019-05-03] MEDS: calcium carbonate/vitamin D3 tablet PO SCH ×2 (08:00→19:43)
[2019-05-03] MEDS: oxybutynin 5mg tablet PO SCH ×3 (09:21→21:51)
[2019-05-03] MEDS: furosemide 20 MG/2 ML vial IV SCH (09:22)
[2019-05-03] MEDS: carvedilol 6.25mg tablet PO SCH ×2 (09:22→19:31)
[2019-05-03] MEDS: docusate sod 100mg capsule PO SCH ×3 (09:22→21:51)
[2019-05-03] MEDS: tamsulosin 0.4mg capsule PO SCH (09:22)
[2019-05-03] MEDS: pyridostigmine br 60mg tablet PO SCH ×4 (09:22→21:51)
[2019-05-03] MEDS: lactobacillus rhamnosus 10,000 MMU CELLS/CAPSULE PO SCH ×2 (09:22→19:40)
[2019-05-03] MEDS: ferrous sulfate 325mg tablet PO SCH ×4 (09:22→21:51)
[2019-05-03] MEDS: normal saline 1000ml 1,000 ML IV SCH (09:23)
--- NOTE | 2019-05-03 11:39 | NUR ---
Dr. Burdick at bedside, new orders for 1 unit PRBC for hgb 6.6. Lasix 40mg IV to be given after blood. Type and screen ordered for blood bank. MD and pt signed consent.
[2019-05-03] MEDS ORDERED: furosemide 40mg/4ml inj IV ONE (11:40)
--- NOTE | 2019-05-03 12:15 | NUR ---
Pts family at bedside, pts family bringing outside food against current diet order. Instructed family that due to aspiration risks, that pt needs to eat meals provided per MD diet order which is a carb controlled pureed diet. Unable to administer prescribed humalog, as unknown carb intake. Pts family request to speak with Dr. Burdick. Page sent to Dr. Burdick PAGER ID: [phone] MESSAGE: RE: [id number] Scottie Soria. Pt family at bedside, would like to discuss plan of care, specifically diet concerns. Thanks, Aileen Lx [phone]
[2019-05-03] MEDS: insulin Lispro (HumaLOG) vial - multi-dose SQ SCH ×2 (14:33→19:20)
--- NOTE | 2019-05-03 18:11 | NUR ---
[place] documentation: I have reviewed and agree with all interventions, assessments performed and documented by GONZALO Gallagher. [place] Medication Administration: For this medication-pass time frame, all medication were reviewed, dispensed, administered and documented per hospital policy by GONZALO Gallagher.
--- NOTE | 2019-05-03 19:00 | NUR ---
Patient in room PCU 3017. I have received report from Maude SÁNCHEZ and had the opportunity to ask questions and assume patient care. Patient sitting up in bed, family just arrived, will continue to monitor.
--- NOTE | 2019-05-03 19:13 | NUR ---
Problems reprioritized. Patient report given, questions answered & plan of care reviewed with GONZALO Acevedo. Patient attempting to get out of bed. Bed alarm in place. Changed krelex dressing to wound. Patient stable at transfer of care.
[2019-05-03] MEDS: ceFAZolin 1GM/D5W- ADD-VANTAGE 50 ML IV SCH (19:24)
--- NOTE | 2019-05-03 20:00 | NUR ---
Patient's son, todd requesting more soups and increased protein with meals. States patient will not eat mashed potatoes or pureed oatmeal. Also states that he cannot wait to have patient discharge due to patient not eating well with the food provided by us. States that he feels the patient eating real food and getting nutrition is more important than following a diet that he will not eat and will starve. Educated son that regular food puts the patient at increased risk of choking and aspiration pneumonia. Son states understanding that we feel that way but that he feels that his aspiration pneumonia in the past was due to too much liquids. Will continue to monitor.
[2019-05-03] MEDS: insulin glargine (Lantus) pen - multi-dose SQ SCH (21:50)
[2019-05-04] VITALS (7 sets, daily range): BP systolic 138–162; BP diastolic 37–109
[2019-05-04] MEDS: ipratropium/albuterol 3ml nebule NEB SCH ×6 (03:21→23:09)
--- NOTE | 2019-05-04 06:00 | NUR ---
Patient in room PCU 3017. I have received report from Kristina SÁNCHEZ and had the opportunity to ask questions and assume patient care.
[2019-05-04 06:13] LABS: BASOPHILS % (AUTO) 0.1 % (0-1); EOSINOPHILS % (AUTO) 0.2 % (0-6); HEMATOCRIT 23.4 % (42.0-52.0); HEMOGLOBIN 7.7 g/dl (14.0-17.9); LYMPHOCYTES # (AUTO) 0.9 X10'3 (1.1-4.8); LYMPHOCYTES % (AUTO) 6.1 % (21-51); MEAN CORPUSCULAR HEMOGLOBIN 27.6 PG (27.0-31.0); MEAN CORPUSCULAR HGB CONC 32.7 g/dL (33.0-36.5); MEAN CORPUSCULAR VOLUME 84.4 FL (78-98); MEAN PLATELET VOLUME 8.4 FL (7.4-10.4); MONOCYTES # (AUTO) 0.5 X10'3 (0-0.9); MONOCYTES % (AUTO) 3.3 % (2-12); NEUTROPHILS % (AUTO) 90.3 % (42-75); PLATELET COUNT 278 X10'3 (140-440); RED BLOOD COUNT 2.77 X10'6 (4.70-6.10); RED CELL DISTRIBUTION WIDTH 18.5 % (11.5-14.5); WHITE BLOOD COUNT 14.4 X10'3 (4.5-11.0)
[2019-05-04 06:26] LABS: ALANINE AMINOTRANSFERASE 14 U/L (12-78); ALBUMIN/GLOBULIN RATIO 0.7 (1.1-1.5); ALKALINE PHOSPHATASE 43 IU/L (46-116); ANION GAP 9 (8-16); ASPARTATE AMINO TRANSFERASE 13 U/L (10-37); BILIRUBIN,TOTAL 0.4 MG/DL (0.1-1.0); BLOOD UREA NITROGEN 86 MG/DL (7-18); CALCIUM 7.8 MG/DL (8.5-10.1); CHLORIDE 110 MMOL/L (99-107); CREATININE 2.46 MG/DL (0.60-1.10); MAGNESIUM 1.9 MG/DL (1.5-2.4); PHOSPHORUS 4.1 MG/DL (2.3-4.5); POTASSIUM 3.5 MMOL/L (3.5-5.1); SODIUM 143 MMOL/L (135-145); VANCOMYCIN,RANDOM 20.1 UG/ML; eGFR 25 ML/MIN
--- NOTE | 2019-05-04 06:27 | NUR ---
Problems reprioritized. Patient report given, questions answered & plan of care reviewed with Fco SÁNCHEZ.
--- NOTE | 2019-05-04 06:30 | NUR ---
Pt's blood sugar is 40. Will give 50ml push of dextrose per Hypoglycemic protocol.
[2019-05-04 06:35] LABS: GLUCOSE 44 MG/DL (70-104)
[2019-05-04] MEDS: dextrose 50%-water 50ml dispensing syringe IV PRN ×2 (06:46→12:06)
--- NOTE | 2019-05-04 07:00 | NUR ---
Pt's blood sugar rechecked and is now 149 after IV push of dextrose.
[2019-05-04] MEDS: K and/or MAG REPLACEMENT MC SCH (08:00)
[2019-05-04] MEDS: ceFAZolin 1GM/D5W- ADD-VANTAGE 50 ML IV SCH ×2 (08:34→21:01)
[2019-05-04] MEDS: ferrous sulfate 325mg tablet PO SCH ×4 (08:36→21:00)
[2019-05-04] MEDS: prednisone 10mg tablet PO SCH (08:36)
[2019-05-04] MEDS: calcium carbonate/vitamin D3 tablet PO SCH ×2 (08:37→21:14)
[2019-05-04] MEDS: tamsulosin 0.4mg capsule PO SCH (08:37)
[2019-05-04] MEDS: oxybutynin 5mg tablet PO SCH ×3 (08:38→21:14)
[2019-05-04] MEDS: pyridostigmine br 60mg tablet PO SCH ×4 (08:39→21:14)
[2019-05-04] MEDS: carvedilol 6.25mg tablet PO SCH ×2 (08:42→21:14)
[2019-05-04] MEDS: furosemide 20 MG/2 ML vial IV SCH (08:43)
[2019-05-04] MEDS: lactobacillus rhamnosus 10,000 MMU CELLS/CAPSULE PO SCH ×2 (08:45→21:14)
[2019-05-04] MEDS: pantoprazole 40mg Tablet.DR PO SCH (08:46)
[2019-05-04] MEDS: docusate sod 100mg capsule PO SCH ×3 (08:46→21:14)
[2019-05-04] MEDS: insulin Lispro (HumaLOG) vial - multi-dose SQ SCH ×2 (09:15→21:58)
--- NOTE | 2019-05-04 12:05 | NUR ---
Pts blood sugar 31. Pt received 50 ML of D50. Will recheck BS in 15 min.
--- NOTE | 2019-05-04 13:01 | NUR ---
Pt's Blood sugar rechecked 78
--- NOTE | 2019-05-04 18:20 | NUR ---
Problems reprioritized. Patient report given, questions answered & plan of care reviewed with Win SÁNCHEZ.
--- NOTE | 2019-05-04 18:36 | NUR ---
Patient in room PCU 3017. I have received report from Fco SÁNCHEZ and had the opportunity to ask questions and assume patient care.
[2019-05-04] MEDS: insulin glargine (Lantus) pen - multi-dose SQ SCH (21:59)
[2019-05-05] VITALS (7 sets, daily range): BP systolic 115–173; BP diastolic 32–79
[2019-05-05] MEDS: ipratropium/albuterol 3ml nebule NEB SCH ×6 (03:06→23:24)
--- NOTE | 2019-05-05 03:48 | NUR ---
The patient had several low blood sugars which brought him back to a level 0. His last sugar for me was 273. I didn't cover him for dinner. I discussed with the charge nurse about starting him on protocol again and told her about his lows. We discussed about using the nighttime insulin coverage, which I gave one unit of humalog. She told him to decrease his lantus dose from 7 to 4.
[2019-05-05 05:31] LABS: BASOPHILS % (AUTO) 0.3 % (0-1); EOSINOPHILS # (AUTO) 0.1 X10'3 (0-0.9); EOSINOPHILS % (AUTO) 0.5 % (0-6); HEMOGLOBIN 7.2 g/dl (14.0-17.9); LYMPHOCYTES # (AUTO) 0.5 X10'3 (1.1-4.8); MEAN CORPUSCULAR HEMOGLOBIN 27.8 PG (27.0-31.0); MEAN CORPUSCULAR HGB CONC 32.8 g/dL (33.0-36.5); MEAN CORPUSCULAR VOLUME 84.8 FL (78-98); MEAN PLATELET VOLUME 8.8 FL (7.4-10.4); MONOCYTES # (AUTO) 0.5 X10'3 (0-0.9); MONOCYTES % (AUTO) 4.1 % (2-12); NEUTROPHILS % (AUTO) 91.1 % (42-75); PLATELET COUNT 282 X10'3 (140-440); RED BLOOD COUNT 2.58 X10'6 (4.70-6.10); RED CELL DISTRIBUTION WIDTH 18.2 % (11.5-14.5); WHITE BLOOD COUNT 13.2 X10'3 (4.5-11.0)
[2019-05-05 05:41] LABS: ALANINE AMINOTRANSFERASE 11 U/L (12-78); ALBUMIN 1.9 G/DL (3.4-5.0); ALBUMIN/GLOBULIN RATIO 0.6 (1.1-1.5); ALKALINE PHOSPHATASE 42 IU/L (46-116); ANION GAP 7 (8-16); ASPARTATE AMINO TRANSFERASE 10 U/L (10-37); BILIRUBIN,TOTAL 0.3 MG/DL (0.1-1.0); BLOOD UREA NITROGEN 80 MG/DL (7-18); BUN/CREATININE RATIO 32.3 (5.4-32.0); CALCIUM 7.7 MG/DL (8.5-10.1); CHLORIDE 109 MMOL/L (99-107); CREATININE 2.48 MG/DL (0.60-1.10); GLUCOSE 120 MG/DL (70-104); MAGNESIUM 1.7 MG/DL (1.5-2.4); PHOSPHORUS 3.4 MG/DL (2.3-4.5); POTASSIUM 3.5 MMOL/L (3.5-5.1); SODIUM 142 MMOL/L (135-145); TOTAL CARBON DIOXIDE 26.3 MMOL/L (24-32); TOTAL PROTEIN 4.9 G/DL (6.4-8.2); eGFR 25 ML/MIN
[2019-05-05 05:46] LABS: HEMATOCRIT 21.9 % (42.0-52.0)
--- NOTE | 2019-05-05 06:00 | NUR ---
Patient in room PCU 3017. I have received report from Mateo SÁNCHEZ and had the opportunity to ask questions and assume patient care.
--- NOTE | 2019-05-05 06:03 | NUR ---
Problems reprioritized. Patient report given, questions answered & plan of care reviewed with Fco SÁNCHEZ.
[2019-05-05] MEDS: K and/or MAG REPLACEMENT MC SCH (08:00)
[2019-05-05] MEDS: furosemide 20 MG/2 ML vial IV SCH (08:17)
[2019-05-05] MEDS: ceFAZolin 1GM/D5W- ADD-VANTAGE 50 ML IV SCH ×2 (08:17→21:38)
[2019-05-05] MEDS: prednisone 10mg tablet PO SCH (08:18)
[2019-05-05] MEDS: oxybutynin 5mg tablet PO SCH ×3 (08:18→21:38)
[2019-05-05] MEDS: lactobacillus rhamnosus 10,000 MMU CELLS/CAPSULE PO SCH ×2 (08:18→21:38)
[2019-05-05] MEDS: pyridostigmine br 60mg tablet PO SCH ×4 (08:19→21:38)
[2019-05-05] MEDS: calcium carbonate/vitamin D3 tablet PO SCH ×2 (08:19→21:38)
[2019-05-05] MEDS: pantoprazole 40mg Tablet.DR PO SCH (08:19)
[2019-05-05] MEDS: ferrous sulfate 325mg tablet PO SCH ×4 (08:19→21:00)
[2019-05-05] MEDS: docusate sod 100mg capsule PO SCH ×3 (08:19→21:38)
[2019-05-05] MEDS: tamsulosin 0.4mg capsule PO SCH (08:19)
[2019-05-05] MEDS: carvedilol 6.25mg tablet PO SCH ×2 (08:20→21:38)
[2019-05-05] MEDS: insulin Lispro (HumaLOG) vial - multi-dose SQ SCH ×2 (09:06→19:34)
[2019-05-05] MEDS ORDERED: methylPREDNISolone sod succ 125mg/2ml vial IV ONE (10:15)
[2019-05-05] MEDS ORDERED: CEPH250T PO (10:53)
[2019-05-05] MEDS ORDERED: furosemide 40mg/4ml inj IV ONE (11:00)
[2019-05-05] MEDS ORDERED: BUDE10.22 INH (11:00)
--- NOTE | 2019-05-05 13:00 | NUR ---
Spoke with primary nurse about pt's dressing. He states he changed it this morning and the dressing remains CDI. He states there are no longer issues with excessive drainage or bleeding and they have all supplies needed for dressing change. Will continue to monitor. Addendum: 05/05/19 at 1301 by Janeen Gruber RN Amended: Links added.
--- NOTE | 2019-05-05 14:38 | NUR ---
reassessment: Pt PO 25-50% meals avg fluctuating. D/c pending w/ palliative care per MD note but no change in code status. [employer] recs pureed/NTL today but Mechanical soft/NTL ordered. Per RN mechanical soft diet ordered per MD approval today. Will continue to monitor for [employer] recs and changes in code status. Recommendations: 1) heart healthy CHO controlled diet with pureed consistency and nectar thick liquids per [employer] recs 2) Send ensure pudding with dinner, med plus nectar thick liquid drink with lunch; double proteins TIDWM 3) honor pt food preferences; see prior note 4) Routine bowel care 5) Wt per rx Addendum: 05/05/19 at [address] Amended: Links added.
[2019-05-05] MEDS: normal saline 1000ml 1,000 ML IV SCH (17:00)
--- NOTE | 2019-05-05 18:19 | NUR ---
Patient in room PCU 3017. I have received report from Mateo SÁNCHEZ and had the opportunity to ask questions and assume patient care.
--- NOTE | 2019-05-05 18:33 | NUR ---
Patient in room PCU 3017. I have received report from Fco SÁNCHEZ and had the opportunity to ask questions and assume patient care.
[2019-05-05] MEDS: insulin glargine (Lantus) pen - multi-dose SQ SCH (21:56)
[2019-05-06 02:00] VITALS: BP 155/62
[2019-05-06] MEDS: ipratropium/albuterol 3ml nebule NEB SCH ×6 (03:02→23:01)
[2019-05-06 06:00] VITALS: BP 155/74
--- NOTE | 2019-05-06 06:27 | NUR ---
Problems reprioritized. Patient report given, questions answered & plan of care reviewed with Matias SÁNCHEZ.
--- NOTE | 2019-05-06 06:28 | NUR ---
Patient in room PCU 3017. I have received report from GONZALO Walden and had the opportunity to ask questions and assume patient care.
[2019-05-06 07:09] LABS: BASOPHILS % (AUTO) 0.1 % (0-1); EOSINOPHILS % (AUTO) 0.1 % (0-6); HEMATOCRIT 22.5 % (42.0-52.0); HEMOGLOBIN 7.3 g/dl (14.0-17.9); LYMPHOCYTES # (AUTO) 0.7 X10'3 (1.1-4.8); LYMPHOCYTES % (AUTO) 4.9 % (21-51); MEAN CORPUSCULAR HEMOGLOBIN 27.3 PG (27.0-31.0); MEAN CORPUSCULAR HGB CONC 32.2 g/dL (33.0-36.5); MEAN CORPUSCULAR VOLUME 84.8 FL (78-98); MEAN PLATELET VOLUME 8.5 FL (7.4-10.4); MONOCYTES # (AUTO) 0.8 X10'3 (0-0.9); MONOCYTES % (AUTO) 5.3 % (2-12); NEUTROPHILS # (AUTO) 13.5 X10'3 (1.8-7.7); NEUTROPHILS % (AUTO) 89.6 % (42-75); PLATELET COUNT 310 X10'3 (140-440); RED BLOOD COUNT 2.66 X10'6 (4.70-6.10); RED CELL DISTRIBUTION WIDTH 18.7 % (11.5-14.5); WHITE BLOOD COUNT 15.1 X10'3 (4.5-11.0)
[2019-05-06 07:34] LABS: ALANINE AMINOTRANSFERASE 9 U/L (12-78); ALBUMIN 1.9 G/DL (3.4-5.0); ALBUMIN/GLOBULIN RATIO 0.6 (1.1-1.5); ALKALINE PHOSPHATASE 44 IU/L (46-116); ANION GAP 10 (8-16); ASPARTATE AMINO TRANSFERASE 16 U/L (10-37); BILIRUBIN,TOTAL 0.4 MG/DL (0.1-1.0); BLOOD UREA NITROGEN 77 MG/DL (7-18); BUN/CREATININE RATIO 31.2 (5.4-32.0); CALCIUM 7.6 MG/DL (8.5-10.1); CHLORIDE 107 MMOL/L (99-107); CREATININE 2.47 MG/DL (0.60-1.10); GLUCOSE 78 MG/DL (70-104); MAGNESIUM 1.7 MG/DL (1.5-2.4); PHOSPHORUS 3.5 MG/DL (2.3-4.5); POTASSIUM 3.7 MMOL/L (3.5-5.1); SODIUM 143 MMOL/L (135-145); TOTAL CARBON DIOXIDE 26.3 MMOL/L (24-32); TOTAL PROTEIN 5.1 G/DL (6.4-8.2); eGFR 25 ML/MIN
[2019-05-06] MEDS: K and/or MAG REPLACEMENT MC SCH (07:44)
[2019-05-06] MEDS: ceFAZolin 1GM/D5W- ADD-VANTAGE 50 ML IV SCH ×2 (07:46→21:44)
[2019-05-06] MEDS: calcium carbonate/vitamin D3 tablet PO SCH ×2 (07:47→21:43)
[2019-05-06] MEDS: docusate sod 100mg capsule PO SCH ×3 (07:47→21:00)
[2019-05-06] MEDS: lactobacillus rhamnosus 10,000 MMU CELLS/CAPSULE PO SCH ×2 (07:47→21:43)
[2019-05-06] MEDS: oxybutynin 5mg tablet PO SCH ×3 (07:47→21:42)
[2019-05-06] MEDS: tamsulosin 0.4mg capsule PO SCH (07:47)
[2019-05-06] MEDS: furosemide 20 MG/2 ML vial IV SCH (07:47)
[2019-05-06] MEDS: prednisone 10mg tablet PO SCH (07:48)
[2019-05-06] MEDS: pantoprazole 40mg Tablet.DR PO SCH (07:48)
[2019-05-06] MEDS: pyridostigmine br 60mg tablet PO SCH ×4 (07:48→21:43)
[2019-05-06] MEDS: ferrous sulfate 325mg tablet PO SCH ×4 (07:48→21:43)
[2019-05-06] MEDS: carvedilol 6.25mg tablet PO SCH ×2 (07:48→21:43)
[2019-05-06] MEDS: insulin Lispro (HumaLOG) vial - multi-dose SQ SCH ×3 (09:15→19:04)
[2019-05-06 11:00] VITALS: BP 148/80
[2019-05-06 18:00] VITALS: BP 106/50
--- NOTE | 2019-05-06 18:21 | NUR ---
Problems reprioritized. Patient report given, questions answered & plan of care reviewed with GONZALO Shaw.
--- NOTE | 2019-05-06 18:34 | NUR ---
Patient in room PCU 3017. I have received report from Matias SÁNCHEZ and had the opportunity to ask questions and assume patient care.
[2019-05-06] MEDS: HYDROcodone/acetaminophen 10/325mg tab PO PRN (20:27)
[2019-05-06] MEDS: insulin glargine (Lantus) pen - multi-dose SQ SCH ×2 (21:00→22:52)
[2019-05-06 23:00] VITALS: BP 145/67
[2019-05-07] MEDS: HYDROcodone/acetaminophen 10/325mg tab PO PRN (00:40)
[2019-05-07] MEDS: ipratropium/albuterol 3ml nebule NEB SCH ×5 (03:13→19:28)
[2019-05-07 06:00] VITALS: BP 148/71
[2019-05-07 06:10] LABS: BASOPHILS % (AUTO) 0.2 % (0-1); EOSINOPHILS % (AUTO) 0.2 % (0-6); HEMATOCRIT 22.7 % (42.0-52.0); HEMOGLOBIN 7.3 g/dl (14.0-17.9); LYMPHOCYTES # (AUTO) 0.6 X10'3 (1.1-4.8); LYMPHOCYTES % (AUTO) 5.6 % (21-51); MEAN CORPUSCULAR HEMOGLOBIN 27.5 PG (27.0-31.0); MEAN CORPUSCULAR HGB CONC 32.1 g/dL (33.0-36.5); MEAN CORPUSCULAR VOLUME 85.9 FL (78-98); MEAN PLATELET VOLUME 9.1 FL (7.4-10.4); MONOCYTES # (AUTO) 0.8 X10'3 (0-0.9); MONOCYTES % (AUTO) 8.4 % (2-12); NEUTROPHILS # (AUTO) 8.6 X10'3 (1.8-7.7); NEUTROPHILS % (AUTO) 85.6 % (42-75); PLATELET COUNT 331 X10'3 (140-440); RED BLOOD COUNT 2.64 X10'6 (4.70-6.10); RED CELL DISTRIBUTION WIDTH 19.2 % (11.5-14.5); WHITE BLOOD COUNT 10.1 X10'3 (4.5-11.0)
[2019-05-07 06:19] LABS: ALANINE AMINOTRANSFERASE 7 U/L (12-78); ALBUMIN 2.1 G/DL (3.4-5.0); ALBUMIN/GLOBULIN RATIO 0.6 (1.1-1.5); ALKALINE PHOSPHATASE 49 IU/L (46-116); ANION GAP 9 (8-16); ASPARTATE AMINO TRANSFERASE 12 U/L (10-37); BILIRUBIN,TOTAL 0.3 MG/DL (0.1-1.0); BLOOD UREA NITROGEN 81 MG/DL (7-18); CHLORIDE 104 MMOL/L (99-107); CREATININE 2.53 MG/DL (0.60-1.10); GLUCOSE 172 MG/DL (70-104); MAGNESIUM 1.7 MG/DL (1.5-2.4); PHOSPHORUS 3.4 MG/DL (2.3-4.5); POTASSIUM 3.8 MMOL/L (3.5-5.1); SODIUM 140 MMOL/L (135-145); TOTAL CARBON DIOXIDE 26.7 MMOL/L (24-32); TOTAL PROTEIN 5.4 G/DL (6.4-8.2); eGFR 24 ML/MIN
--- NOTE | 2019-05-07 07:00 | NUR ---
Patient in room PCU 3017. I have received report from GONZALO LAZAR and had the opportunity to ask questions and assume patient care.
--- NOTE | 2019-05-07 07:27 | NUR ---
Problems reprioritized. Patient report given, questions answered & plan of care reviewed with Elias RN.
[2019-05-07] MEDS: ceFAZolin 1GM/D5W- ADD-VANTAGE 50 ML IV SCH ×2 (07:38→20:00)
[2019-05-07 07:39] LABS: ANISOCYTOSIS 2+; LARGE PLATELETS FEW; MICROCYTOSIS 1+; PLATELET ESTIMATE NORMAL; POLYCHROMASIA 1+
[2019-05-07 07:40] LABS: POIKILOCYTOSIS FEW
[2019-05-07] MEDS: furosemide 20 MG/2 ML vial IV SCH (07:45)
[2019-05-07] MEDS: docusate sod 100mg capsule PO SCH ×3 (07:50→21:00)
[2019-05-07] MEDS: oxybutynin 5mg tablet PO SCH ×3 (07:50→21:00)
[2019-05-07] MEDS: carvedilol 6.25mg tablet PO SCH ×2 (07:50→20:00)
[2019-05-07] MEDS: lactobacillus rhamnosus 10,000 MMU CELLS/CAPSULE PO SCH ×2 (07:50→20:00)
[2019-05-07] MEDS: pyridostigmine br 60mg tablet PO SCH ×4 (07:51→21:00)
[2019-05-07] MEDS: ferrous sulfate 325mg tablet PO SCH ×4 (07:51→21:00)
[2019-05-07] MEDS: calcium carbonate/vitamin D3 tablet PO SCH ×2 (07:51→20:00)
[2019-05-07] MEDS: tamsulosin 0.4mg capsule PO SCH (07:51)
[2019-05-07] MEDS: prednisone 10mg tablet PO SCH (07:53)
[2019-05-07] MEDS: pantoprazole 40mg Tablet.DR PO SCH (07:54)
[2019-05-07] MEDS: K and/or MAG REPLACEMENT MC SCH (08:00)
--- NOTE | 2019-05-07 08:09 | NUR ---
PAGER ID: [phone] MESSAGE: DR. CURIEL, [id number]/JARROD, [facility] SOFT DIET ORDERED, RECEIVING THIN LIQUIDS. HAD THIN LIQUIDS AVAILABLE AT BEDSIDE. JUST REMOVED ALL.LAST SPEECH EVAL REC. NECTAR THICK LIQUIDS. PLEASE CLARIFY HIS DIET ORDER. YULISSA [id number].TY
[2019-05-07] MEDS: insulin Lispro (HumaLOG) vial - multi-dose SQ SCH ×3 (08:30→19:29)
--- NOTE | 2019-05-07 10:02 | NUR ---
PAGER ID: [phone] MESSAGE: DR. CURIEL, [id number]/JARROD, NEED CLARIFICATION OF DIET ORDER PER PREVIOUS MESSAGE AND ALSO NEED CODE STATUS ORDERS PLEASE. LIMITED CODE ORDERED WITHOUT THE DETAILS. YULISSA WALDROP [id number].
[2019-05-07 11:00] VITALS: BP 134/52
[2019-05-07] MEDS: normal saline 1000ml 1,000 ML IV SCH (12:25)
--- NOTE | 2019-05-07 14:59 | NUR ---
PAGER ID: [phone] MESSAGE: , [id number]/JARROD, 18 BEAT RUN VT. ASX. POST RUN 133/59, 87% SAT ON 2LNC(WILL INCREASE TO 3L), HR 71. YULISSA [id number]. TY.
[2019-05-07 15:00] VITALS: BP 131/59
--- NOTE | 2019-05-07 17:12 | NUR ---
PAGER ID: [phone] MESSAGE: DR. CURIEL, [id number]/JARROD, SON IS REQUESTING TO SPEAK WITH YOU. YULISSA 5441. TY.
[2019-05-07 18:00] VITALS: BP 158/64
--- NOTE | 2019-05-07 18:16 | NUR ---
Problems reprioritized. Patient report given, questions answered & plan of care reviewed with marisa zhao.
--- NOTE | 2019-05-07 18:28 | NUR ---
Patient in room PCU 3017. I have received report from Elias SÁNCHEZ and had the opportunity to ask questions and assume patient care.
--- NOTE | 2019-05-07 20:03 | NUR ---
PAGER ID: [phone] MESSAGE: Patient Estella Rubin Rm [id number] Patient quickly declining, sating in the 50's on a non-rebreather, non responsive, bradying down to the 30's and 40's. Can you come talk to family about possible comfort care? Thank you. Yuly SÁNCHEZ ext. [phone]
--- NOTE | 2019-05-07 20:15 | NUR ---
MD responded to page and came to bedside to discuss comfort care with the family. Two sons are present at bedside. Patient has been gradually declining but has significantly declined even more today. He is no longer responsive to voice, only to painful stimuli and this is not his baseline. He wont wake up to take medications. His oxygen demand has greatly increased and went from two liters to now sating in the 50's on a non-rebreather. Heart rate is also dropping, and occasionally getting as low as the 40's and 50's. Family is aware of his declining state and opted for comfort care so that he can pass comfortably. Will not continue any more life sustaining measure. MD ordered PRN Morphine and Ativan and will give as needed. Patient does appear comfortable at this time but will give a dose of Morphine to help with air hunger and see how he responds to this. Family educated on comfort care and to notify staff with any further needs they may have.
[2019-05-07] MEDS ORDERED: LORazepam 2 mg/ml vial IV PRN (20:20)
[2019-05-07] MEDS ORDERED: morphine 10mg/0.5ml (conc. morphine) oral syringe PO PRN (20:20)
[2019-05-07] MEDS ORDERED: morphine 10mg/ml inj. IV PRN (20:20)
[2019-05-07] MEDS ORDERED: acetaminophen 325mg tablet PO PRN (20:20)
[2019-05-07] MEDS: insulin glargine (Lantus) pen - multi-dose SQ SCH (21:00)
--- NOTE | 2019-05-07 22:49 | NUR ---
PAGER ID: [phone] MESSAGE: Patient Scottie Soria Rm [id number] Patient that was placed on comfort care tonight has at 2240. Yuly SÁNCHEZ ext. [phone]
--- NOTE | 2019-05-07 23:19 | NUR ---
Patient comfortably with no signs of symptoms of distress at 2240. confirmed with second RN Marlys with checking absence of apical pulse, respirations, or pupillary response. Tele strip with asystole obtained. Sons, Malachi and Oliver were present at bedside at time of and handled the situation well as it was expected for them. They will get in contact with the rest of the family. Dr. Tinajero paged for the FYI that patient has . Family has decided to choose [facility] and will get in contact with them to machine pecan picker the body. The donor network was notified and referral number is [phone]. Patient cleaned up, postmortem care provided, and all lines taken out.
--- NOTE | 2019-05-08 00:57 | NUR ---
[facility] here to forklift picker patient at this time.
[2019-05-09 11:15] LABS: ATYPICAL PANCA <1:20 titer (Neg:<1:20); CYTOPLASMIC (C-ANCA) <1:20 titer (Neg:<1:20); PERINUCLEAR (P-ANCA) <1:20 titer (Neg:<1:20)
== END 2019-05-08 01:00 | disposition expired | DRG 853 ==
LOC: ER 08:07 → PCU 3S 12:26 → CMPBEDREQ 19:45 → PCU 3S 05-03 23:21
PROVIDERS: ADMIT Family Medicine; ATTEND Family Medicine
PROC: 0JBG0ZZ Excision of Right Lower Arm Subcutaneous Tissue and Fascia, Open Approach (ICD-10-PCS; principal; 2019-04-30 22:56)
PROC: 0X3D0ZZ Control Bleeding in Right Lower Arm, Open Approach (ICD-10-PCS; 2019-05-02)
PROC: 30233N1 Transfusion of Nonautologous Red Blood Cells into Peripheral Vein, Percutaneous Approach (ICD-10-PCS; 2019-05-03)
DX: A41.9 Sepsis, unspecified organism (principal); I21.A1 Myocardial infarction type 2; I50.23 Acute on chronic systolic (congestive) heart failure; L03.113 Cellulitis of right upper limb; G23.1 Progressive supranuclear ophthalmoplegia [Steele-Richardson-Olszewski]; I13.0 Hypertensive heart and chronic kidney disease with heart failure and stage 1 through stage 4 chronic kidney disease, or unspecified chronic kidney disease; N17.9 Acute kidney failure, unspecified; L02.413 Cutaneous abscess of right upper limb; H20.9 Unspecified iridocyclitis; J44.1 Chronic obstructive pulmonary disease with (acute) exacerbation; G70.00 Myasthenia gravis without (acute) exacerbation; E87.6 Hypokalemia; R58 Hemorrhage, not elsewhere classified; E11.22 Type 2 diabetes mellitus with diabetic chronic kidney disease; E78.5 Hyperlipidemia, unspecified; E86.0 Dehydration; I25.10 Atherosclerotic heart disease of native coronary artery without angina pectoris; I46.9 Cardiac arrest, cause unspecified; I48.91 Unspecified atrial fibrillation; N18.9 Chronic kidney disease, unspecified; N40.0 Benign prostatic hyperplasia without lower urinary tract symptoms; D64.9 Anemia, unspecified; R00.1 Bradycardia, unspecified; Z51.5 Encounter for palliative care; Z66 Do not resuscitate; Z96.659 Presence of unspecified artificial knee joint; M10.9 Gout, unspecified; M19.90 Unspecified osteoarthritis, unspecified site; Z79.82 Long term (current) use of aspirin; Z88.2 Allergy status to sulfonamides; Z79.899 Other long term (current) drug therapy; I25.2 Old myocardial infarction; Z86.14 Personal history of Methicillin resistant Staphylococcus aureus infection; Z87.891 Personal history of nicotine dependence; Z79.84 Long term (current) use of oral hypoglycemic drugs; Z85.46 Personal history of malignant neoplasm of prostate
CPT/HCPCS: 36415; 71045; 73090; 80053; 80061; 80202; 82948; 83036; 83605; 83735; 83880; 84100; 84132; 84145; 84484; 85025; 85610; 85730; 86256; 86430; 86885; 86900; 86901; 86920; 87040; 87081; 88304; 92508; 92616; 93005; 93971; 94640; 94667; 94668; 94760; 96372; 96374; 96376; 97110; 97161; 97530; 99285; A4215; A4618; A6446; A6449; A7000; C9399; G0378; J0690; J0692; J1650; J1720; J1815; J1940; J2001; J2270; J2405; J2704; J2930; J3010; J3370; J3480; J3490; J7030; J7120; J7512; P9016